=== PATIENT | female | born 1940 | race Caucasian/White ===

== ENCOUNTER 2017-08-22 08:25 | Outpatient (CLI) | payer MEDICARE | END 2017-08-22 08:26 | disposition home or self-care (01) | LOC: BICMAMMO 08:25 | PROVIDERS: ATTEND Family Medicine | DX: Z12.31 Encounter for screening mammogram for malignant neoplasm of breast (principal) | CPT/HCPCS: 77063; 77067 ==

== ENCOUNTER 2018-04-16 08:43 | Outpatient (CLI) | payer MEDICARE ==
--- NOTE | 2018-04-16 10:47 | RAD ---
SINGLE VIEW OF THE CHEST: Comparison: 02-28-17 History: Dyspnea. FINDINGS: Single view of the chest shows a cardiomediastinal silhouette that is upper limits of normal in size. There is a 4.1 cm mass like opacity projecting over the right lung which was not seen on the prior r adiograph. There appears to be a moderate hiatal hernia. No pleural effusion is seen. IMPRESSION: Mass like opacity projecting over the right thorax. CT of the chest with contrast is recommended for further evaluation. POS: [facility]
== END 2018-04-16 08:44 | disposition home or self-care (01) ==
LOC: RAD 08:43
PROVIDERS: ATTEND Internal Medicine Critical Care Medicine
DX: R06.00 Dyspnea, unspecified (principal); R91.8 Other nonspecific abnormal finding of lung field
CPT/HCPCS: 71046

== ENCOUNTER 2018-04-30 14:00 | Outpatient (CLI) | payer MEDICARE ==
--- NOTE | 2018-05-01 14:56 | PFT ---
PATIENT HISTORY: HEIGHT: 63.5 IN WEIGHT: 207 SMOKER: NO HOW LON YRS PACKS PER DAY: 2 PRODUCTIVE COUGH: LUNG DISEASE: PHYSICIAN INTERPRETATION FINAL REPORT: Physician report: Study is compared to PFT from 2007. FEV1 is 1.30 liters which is 66% predicted , FVC is 1.97 liters, which 75% predicted. There is no significant improvement in flows after bronchodilatation. The FEV1/FVC ratio was 66 compared to 2007. The FEV1 and FVC are decreased. The residual volume and total lung capacity are normal. DLCO is 13.67 which is 65% predicted and is lower than the study done in 2007. Maximum ventilatory volume is 48.5 which is appropriate for the FEV1. IMPRESSION: A mild obstructive pulmonary impairment is present. There is no indication of air trapping or hyperinflation. The reduction in gas exchange is correctable for volume. Corporate Communications Specialist: Salt Miner: ALEXANDR CH
== END 2018-04-30 14:01 | disposition home or self-care (01) ==
LOC: CP 14:00
PROVIDERS: ATTEND Internal Medicine Critical Care Medicine
DX: J44.9 Chronic obstructive pulmonary disease, unspecified (principal); J98.4 Other disorders of lung
CPT/HCPCS: 94060; 94727; 94729

== ENCOUNTER 2018-05-01 09:00 | Outpatient (CLI) | payer MEDICARE ==
--- NOTE | 2018-05-01 13:53 | PET ---
PET WITH CT SKULL TO MID THIGH: COMPARISON: 04/18/[address] CLINICAL INDICATION: Malignant neoplasm of unspecified lung: right lung mass, right upper lobe. RADIOPHARMACEUTICAL: 12.0 mCi [id number]. FINDINGS: The previously documented right upper lobe mass on CT exam dated 04/18/18 is confirmed as hypermetabo lic, with SUV measuring up to 22. Within the central aspect of the mass, there is relative decreased metabolic activity, which likely relates to a component of internal necrosis. Mass measures approxima tely 5.0 cm in diameter. There is no evidence of hypermetabolic adenopathy. No hypermetabolic mass is seen within the abdomen and pelvis. Evaluation of osseous structures reveals no hypermetabolic lesions. There is evidence of pulmonary fibrosis/emphysema. Scattered vascular disease is present. There is a mild to moderate sized hiatal hernia. Noninflamed fat-containing ventral lower abdominal wall hernia is present to the right of midline. There are colonic diverticula. IMPRESSION: 1. Hypermetabolic mass of the right upper lobe is consistent with malignancy. 2. There is no scintigraphic evidence of metastatic disease. POS: [facility]
== END 2018-05-01 09:01 | disposition home or self-care (01) ==
LOC: PET 09:00
PROVIDERS: ATTEND Internal Medicine Critical Care Medicine
DX: C34.90 Malignant neoplasm of unspecified part of unspecified bronchus or lung (principal); R91.8 Other nonspecific abnormal finding of lung field
CPT/HCPCS: 78815; A9552

== ENCOUNTER 2018-05-05 12:30 | Inpatient (IN) | payer MEDICARE ==
[2018-05-06] MEDS ORDERED: CEFAZOLIN/Water 2 GM/20 ML SYRINGE ONE (09:03)
[2018-05-06] MEDS ORDERED: Midazolam HCl 2 mg/2 ml Vial ONE (10:27)
[2018-05-06] MEDS ORDERED: Fentanyl 100 MCG/2 ML VIAL ONE (10:27)
[2018-05-06] MEDS ORDERED: HYDROcodone/Acetaminophen 5/325 mg Tablet PO PRN ×4 (11:30→15:31)
[2018-05-06] MEDS ORDERED: Hydrocerin (Eucerin) Cream 120 gm Jar TOP PRN (11:30)
[2018-05-06] MEDS ORDERED: diphenhydrAMINE 50 MG/ML VIAL IM PRN (11:30)
[2018-05-06] MEDS ORDERED: traMADol HCl 50 MG TAB PO PRN ×2 (11:30)
[2018-05-06] MEDS ORDERED: Naloxone HCl 0.4 mg/ml Vial IVP PRN (11:30)
[2018-05-06] MEDS ORDERED: diphenhydrAMINE 25 MG CAP PO PRN (11:30)
[2018-05-06] MEDS ORDERED: Ondansetron HCl/PF 4 MG/2 ML Vial IVP PRN ×2 (11:30→15:31)
[2018-05-06] MEDS ORDERED: diphenhydrAMINE 50 MG/ML VIAL IVP PRN (11:30)
[2018-05-06] MEDS ORDERED: Naloxone HCl 0.4 mg/ml Vial IV PRN (11:30)
[2018-05-06] MEDS ORDERED: Zolpidem Tartrate 5 MG TAB PO PRN (11:30)
[2018-05-06] MEDS ORDERED: Bupivacaine 0.25% 10 ML VIAL EPIDURAL PRN (11:30)
[2018-05-06] MEDS ORDERED: Promethazine HCl 25 MG SUPP PR PRN (11:30)
[2018-05-06] MEDS ORDERED: Promethazine HCl 25 MG/ML VIAL IM PRN ×2 (11:30→15:31)
[2018-05-06] MEDS ORDERED: Fentanyl 250 MCG/5 ML VIAL ONE (11:38)
[2018-05-06] MEDS ORDERED: Ropivacaine 0.5% HCl/PF (150 MG/30 ML VIAL) ONE (11:39)
[2018-05-06] MEDS ORDERED: Phenylephrine HCL 10 MG/ML VIAL ONE (11:39)
[2018-05-06] MEDS ORDERED: Glycopyrrolate 0.2 MG/ML 5 ML SYRINGE ONE (14:37)
[2018-05-06] MEDS ORDERED: Dexamethasone 20 MG/5 ML VIAL ONE (14:37)
[2018-05-06] MEDS ORDERED: ePHEDrine/0.9% NaCl/PF SYRINGE 50 mg/10 ml ONE (14:37)
[2018-05-06] MEDS ORDERED: PROPOFOL 200 MG/20 ML VIAL ONE (14:37)
[2018-05-06] MEDS ORDERED: Ondansetron HCl/PF 4 MG/2 ML Vial ONE (14:37)
[2018-05-06] MEDS ORDERED: Phenylephrine 10 MG/NS 250 ML 250 ML IVPB PRN (15:31)
[2018-05-06] MEDS ORDERED: hydrALAZINE 20 MG/ML VIAL SLOW IVP PRN (15:31)
[2018-05-06] MEDS ORDERED: Acetaminophen 1,000 MG in Premix Bag 1 BAG IVPB PRN (15:58)
--- NOTE | 2018-05-06 16:12 | RAD ---
CHEST ONE VIEW: History: Status post thoracotomy. Comparison: None. FINDINGS: Right sided chest tube. There does appear to be a right sided pneumothorax, likely moderate in size. Evaluation is limited due to chest tube. There is subcutaneous air in the right hemithorax. Second ch est tube is noted projecting over the right lung base. IMPRESSION: 1. Two right sided chest tubes. 2. Moderate right sided pneumothorax. POS: [facility]
--- NOTE | 2018-05-06 16:19 | OP ---
DATE OF PROCEDURE: 05/06/2018 PREOPERATIVE DIAGNOSIS: Right upper lobe approximately 5 cm mass that had appeared in the last year on chest x-ray. 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 PROCEDURES: Right thoracotomy with right upper and middle lobectomies and mediastinal lymph node dis section. SURGEON: Tyson Andino M.D. ANESTHESIA: General endotracheal -- Dr. Henok Moya and Pedro Silva CRNA. ESTIMATED BLOOD LOSS: 300. IV FLUIDS: 600. DRAINS: 32-Setswana chest tubes x2. SPECIMENS 1. Right upper and middle lobe. 2. Parietal pleural specimen - frozen section negative for malignancy. 3. Levels 7, 8R, 9R, 10R lymph nodes for routine path. PROCEDURE IN DETAIL: After consent was obtained, the patient was taken to the operating room and sherice sally in supine position on the operating room table. Appropriate anesthetic monitor was placed and ge neral anesthesia induced. The patient was placed in the left lateral decubitus position. The double lumen tube was confirmed in position with fiberoptic bronchoscopy. The right chest wall was prepped and draped in usual sterile fashion. Posterolateral thoracotomy incision was made and dissection do wn through the latissimus was obtained with electrocautery. Chest was entered and approximately the 6th interspace. On entering the chest, the tumor was easily palpable and fixed to the chest wall. I ncision was enlarged and are pericostal incision enlarged. Ribs were spread. A subpleural plane was created and it did not appear that the tumor went through the pleura. A specimen of the pleura unde rneath the tumor was sent and was negative for malignancy. The tumor was completely freed from the p leura. The area where the tumor was stuck was marked with clips. The hilum was mobilized. A level 7 and 8 lymph nodes were taken. A level 9 lymph node was taken on freeing the inferior pulmonary ligament. The venous drainage to both the upper and middle lobes came from a single venous complex. There was no true plane between the upper and middle lobe, therefore, the middle lobe was taken with the specimen. Dissection was begun in the fissure. The lower lobe w as exposed. A level 10 lymph node was taken to the fissure. The fissure was completed both anterior ly and posteriorly with a single fire of a EVERETT stapler. The pulmonary venous drainage was then circu mferentially controlled and divided with vascular stapler. Pulmonary arteries to the upper and middl e lobe were divided between stapler. Middle lobe bronchus was divided with the EVERETT stapler. The upp er lobe bronchus was clamped with a EVERETT stapler and the lower lobe was inflated and filled nicely. S tapler was fired and the specimen was removed. Frozen section on the bronchial margins returned as n egative. Frozen section on the mass returned as a nonsmall cell cancer with spindle features. 32-Setswana chest tubes were placed in the chest. Chest was copiously irrigated with water. Bronchial stumps were tested under 40 cm of pressure and were air tight. After hemostasis had been obtained, the lower lobe was expanded and expanded nicely. Ribs were reapproximated with #1 Vicryl. Wounds we re irrigated, closed in multiple layers, and Dermabond applied to the skin. The patient tolerated th e procedure well, was awakened, extubated, and transferred to the recovery room in stable condition. Needle, sponge, and instrument counts were reported correct x2.
[2018-05-06] MEDS: Ketorolac Tromethamine 30 MG/ML VIAL IVP SCH ×3 (17:28→23:00)
[2018-05-06 17:47] VITALS: BMI 30.1
[2018-05-06] MEDS: CEFAZOLIN/Water 2 GM/20 ML SYRINGE SLOW IVP SCH (18:03)
[2018-05-07] MEDS: CEFAZOLIN/Water 2 GM/20 ML SYRINGE SLOW IVP SCH ×2 (00:45→08:59)
[2018-05-07 04:59] LABS: #Lymphocytes 0.5 thou/uL (1.20-3.40); #Monocytes 0.4 thou/uL (0.11-0.59); #Neutrophils 7.4 thou/uL (1.40-6.50); %Eosinophils 0.2 % (0.0-10.0); %Lymphocytes 5.6 % (21.0-51.0); %Monocytes 4.4 % (0.0-10.0); %Neutrophils 89.9 % (42.0-75.0); Hemoglobin 13.1 g/dL (12.0-16.0); Mean Corpuscular HGB CONC 33.2 g/dL (32.0-36.0); Mean Corpuscular Hemoglobin 35.5 pg (27.0-31.0); Mean Platelet Volume 8.5 fL (7.4-10.4); Platelet Count 254 thou/uL (130-400); RBC Distribution Width 11.4 % (11.5-14.5); Red Blood Cell (RBC) Count 3.69 mill/uL (4.20-5.40); White Blood Cell (WBC) Count 8.2 thou/uL (4.8-10.8)
[2018-05-07] MEDS: Ketorolac Tromethamine 30 MG/ML VIAL IVP SCH ×3 (05:00→18:31)
[2018-05-07 05:19] LABS: Anion Gap 17 mmol/L (10-20); BUN (Urea Nitrogen) 25 mg/dL (9.8-20.1); Calc. Creatinine Clearance 40 mL/min (70-130); Calcium 8.9 mg/dL (7.8-10.44); Carbon Dioxide 23 mmol/L (23-31); Chloride 104 mmol/L (98-107); Estimated GFR-MDRD 36; Glucose 190 mg/dL (83-110); Potassium 4.5 mmol/L (3.5-5.1); Sodium 139 mmol/L (136-145)
[2018-05-07] MEDS: Levothyroxine Sodium 125 MCG TAB PO SCH (05:26)
--- NOTE | 2018-05-07 08:39 | RAD ---
AP VIEW CHEST: HISTORY: Status post thoracotomy. FINDINGS: AP view chest is obtained on 05/07/18. Comparison is made to previous exam from 05/06/18. AP view chest demonstrates a right upper chest superior mediastinal drain in place. This is seen adj acent to the aortic arch. Two right-sided chest tubes in place. No evidence of obvious pneumothorax is seen. Subcutaneous emphysema previously noted is less pronoun sally. Areas of patchy density seen in the left lung base compatible with atelectasis or possible pneumonia in the left lung base. IMPRESSION: Two right-sided chest tubes and possible superior mediastinal drain in place. POS: [facility]
[2018-05-07] MEDS ORDERED: Non-Formulary Item 1 EACH (Cholecalciferol (Vitamin D3) [Vitamin D3] 1,000 UNIT) PO SCH (09:00)
[2018-05-07] MEDS ORDERED: Prevnar 13-Val Conj/PF 0.5 ML SYRINGE IM ONE (09:00)
--- NOTE | 2018-05-07 13:47 | CON ---
DATE OF CONSULTATION: 05/07/2018 Ms. Lemos is a 77-year-old female who had the incidental finding on a yearly chest x-ray this year of a lung mass that was PET positive, it was abutting the chest wall. I referred her to Dr. Sina fernández o was gracious enough to put her on the schedule the following day. I was asked to see her in the Critical Care Unit after surgery. She has an epidural in place. Her c hest tubes in place. She does not have an air leak. PHYSICAL EXAMINATION: VITAL SIGNS: She is afebrile, blood pressure 106/46, heart rate in the 70s, respiratory rates in the low 20s. LUNGS: She has equal breath sounds. HEART: Regular rhythm. S1 and S2 are normal. ABDOMEN: Soft. EXTREMITIES: No clubbing, cyanosis, or edema. LABORATORY: White count 8.2, hemoglobin 13.1, platelets 254. Electrolytes are normal. BUN 25, crea tinine 1.4, glucose 190. IMPRESSION: Status post lobectomy for a rapidly appearing mass that is likely malignant. PLAN: We will await pathology. She appears to be clinically doing well in the Critical Care Unit.
[2018-05-07] MEDS: fentaNYL Citrate/PF 1,250 MCG, Bupivacaine 25 ML in Sodium Chloride 0.9% 250 ML 200 ML EPIDURAL SCH (15:37)
[2018-05-08] MEDS: Ketorolac Tromethamine 30 MG/ML VIAL IVP SCH ×2 (00:32→05:42)
[2018-05-08] MEDS: Levothyroxine Sodium 125 MCG TAB PO SCH (05:42)
[2018-05-08] MEDS ORDERED: Mineral Oil ENEMA PR PRN (07:38)
[2018-05-08] MEDS ORDERED: Furosemide 20 MG/2 ML VIAL SLOW IVP SCH (07:38)
[2018-05-08] MEDS ORDERED: Acetaminophen 650 MG Suppository PR PRN (07:38)
[2018-05-08] MEDS ORDERED: Milk Of Magnesia 30 ML UDCUP PO PRN (07:38)
[2018-05-08] MEDS ORDERED: Acetaminophen 325 MG TAB PO PRN (07:38)
[2018-05-08] MEDS ORDERED: Bisacodyl 10 MG SUPP PR PRN (07:38)
--- NOTE | 2018-05-08 08:38 | RAD ---
PORTABLE CHEST: COMPARISON: Prior day's study. HISTORY: Post thoracotomy. FINDINGS: The right-sided chest tubes remain essentially unchanged in position. Parenchymal lung changes are s table. Heart size appears enlarged. IMPRESSION: Stable exam. POS: [facility]
--- NOTE | 2018-05-08 10:55 | PRG ---
DATE OF SERVICE: 05/08/2018 Ms. Lemos did well overnight. She had an air leak this morning, but the dressing has been replaced over the chest tube sites and the air leak appears to have resolved. PHYSICAL EXAMINATION: VITAL SIGNS: Heart rate is 90. Blood pressure 120/54, respiratory rate is 22. LUNGS: Lungs are clear. There is a rub on the right. CARDIOVASCULAR: Regular rhythm. ABDOMEN: Soft. There is no pneumothorax on chest radiograph. There is no lab today. I will order for some lab for tomorrow since her creatinine was mildly elevat ed at 1.4 yesterday. PLAN: Continue with current care.
[2018-05-08] MEDS: fentaNYL Citrate/PF 1,250 MCG, Bupivacaine 25 ML in Sodium Chloride 0.9% 250 ML 200 ML EPIDURAL SCH (17:00)
[2018-05-09] MEDS: Levothyroxine Sodium 125 MCG TAB PO SCH (06:01)
[2018-05-09 06:35] LABS: Hemoglobin 10.6 g/dL (12.0-16.0); Mean Corpuscular HGB CONC 32.8 g/dL (32.0-36.0); Mean Corpuscular Hemoglobin 34.9 pg (27.0-31.0); Mean Platelet Volume 7.9 fL (7.4-10.4); Platelet Count 209 thou/uL (130-400); RBC Distribution Width 11.5 % (11.5-14.5); Red Blood Cell (RBC) Count 3.04 mill/uL (4.20-5.40); White Blood Cell (WBC) Count 6.8 thou/uL (4.8-10.8)
[2018-05-09 06:50] LABS: Eosinophils 1 % (0-10); Lymphocytes 17 % (21-51); MDiff Complete? YES; Monocytes 7 % (0-10); Neutrophil 75 % (42-75)
[2018-05-09 06:56] LABS: Anion Gap 11 mmol/L (10-20); BUN (Urea Nitrogen) 17 mg/dL (9.8-20.1); Calc. Creatinine Clearance 76 mL/min (70-130); Calcium 8.9 mg/dL (7.8-10.44); Carbon Dioxide 29 mmol/L (23-31); Chloride 102 mmol/L (98-107); Estimated GFR-MDRD 71; Glucose 129 mg/dL (83-110); Potassium 4.1 mmol/L (3.5-5.1); Sodium 138 mmol/L (136-145)
[2018-05-09] MEDS ORDERED: Furosemide 20 MG TAB PO SCH (07:45)
[2018-05-09] MEDS: Furosemide 20 MG TAB PO SCH (08:03)
[2018-05-09] MEDS: Aspirin 81 mg Enteric Coated Tablet PO SCH (08:03)
--- NOTE | 2018-05-09 13:55 | RAD ---
SINGLE OF CHEST: Date: 05/09/18 COMPARISON: 05/08/18. HISTORY: Status post thoracotomy. FINDINGS: Single view of the chest shows a normal sized cardiomediastinal silhouette with atherosclerotic calci fications in the aorta. Postsurgical changes are seen in the right thorax. Right-sided chest tubes ar e seen. No pneumothorax is present. Increased interstitial markings are seen. IMPRESSION: Stable exam. POS: [facility]
--- NOTE | 2018-05-09 18:41 | PRG ---
DATE OF SERVICE: 05/09/2018 SUBJECTIVE: Ms. Lemos had no complaints. She is ready for the chest tube to come out. She has no air leak today, still has her epidural in. OBJECTIVE: VITAL SIGNS: She is afebrile, heart rate 70, respiratory rate 16, oximetry is 95 on 2 liters, blood pressure 106/64. LUNGS: She has equal breath sounds on exam. HEART: Regular rhythm. Chest radiograph shows no pneumothorax. Pathology revealed poorly differentiated malignancy, most compatible with sarcoma. The specimen has been sent out. Margins were negative, but unfortunately 2 lymph nodes were positive for metastatic m alignancy. IMPRESSION: Pulmonary sarcoma with positive lymph nodes. PLAN: Continue with postoperative management, water seal when Cardiothoracic Surgery feels this is a ppropriate and then Oncology consultation at a later date.
[2018-05-09] MEDS: fentaNYL Citrate/PF 1,250 MCG, Bupivacaine 25 ML in Sodium Chloride 0.9% 250 ML 200 ML EPIDURAL SCH (19:53)
--- NOTE | 2018-05-09 23:12 | DIS ---
DATE OF ADMISSION: 05/06/2018 DATE OF DISCHARGE: 05/10/2018 DIAGNOSIS: Right upper lobe mass - pathology has returned as 5.8 cm poorly differentiated malignancy , most compatible with high-grade sarcoma. Margins are negative. There are two lymph nodes - a inne r lobar lymph node and a subcarinal level 7 lymph node that are positive. PROCEDURE: Right thoracotomy with right upper and middle lobectomy and mediastinal lymph node dissec tion. DISCHARGE MEDICATIONS: Unchanged with the exception of the addition of [place] 5/325 one to two q.6 ho urs p.r.n. pain. DESCRIPTION OF HOSPITAL STAY: Ms. Lemos was brought in for elective right thoracotomy. She underw ent upper and middle lobectomy with mediastinal lymph node dissection. Pathology is as above. She has done well postoperatively. Her chest tubes were discontinued on the . She is being disc harged to home on the in good condition. She will follow up with me and Dr. Spencer. Pathology h as been referred out to the [facility] for further delineation. She will also need follow up with ncology Clinic.
[2018-05-10] MEDS: Levothyroxine Sodium 125 MCG TAB PO SCH (06:16)
[2018-05-10] MEDS: Aspirin 81 mg Enteric Coated Tablet PO SCH (09:13)
[2018-05-10] MEDS: Furosemide 20 MG TAB PO SCH (09:13)
[2018-05-10 12:01] VITALS: TEMP 98.1
[2018-05-10 12:06] VITALS: BP 121/69
--- NOTE | 2018-05-10 21:11 | PRG ---
DATE OF SERVICE: 05/10/2018 . She is doing well. She has equal breath sounds. She is in no distress. She is tentatively scheduled for discharge. We will await final pathology second opinion before we refer to Oncology. She is stable for discharge in my opinion.
== END 2018-05-10 15:36 | disposition home or self-care (01) | DRG 164 ==
LOC: SURG A 05-06 08:13 → CCU 05-06 15:18 → 2SE 05-08 16:52 → 2NO 05-09 16:44
PROVIDERS: ADMIT Thoracic Surgery (Cardiothoracic Vascular Surgery); ATTEND Thoracic Surgery (Cardiothoracic Vascular Surgery)
PROC: 0BBD0ZZ Excision of Right Middle Lung Lobe, Open Approach (ICD-10-PCS; principal; 2018-05-06)
PROC: 0BBC0ZZ Excision of Right Upper Lung Lobe, Open Approach (ICD-10-PCS; 2018-05-06)
PROC: 07B70ZX Excision of Thorax Lymphatic, Open Approach, Diagnostic (ICD-10-PCS; 2018-05-06)
PROC: 3E0R3BZ Introduction of Anesthetic Agent into Spinal Canal, Percutaneous Approach (ICD-10-PCS; 2018-05-06)
DX: C34.11 Malignant neoplasm of upper lobe, right bronchus or lung (principal); C77.8 Secondary and unspecified malignant neoplasm of lymph nodes of multiple regions; I10 Essential (primary) hypertension; Z87.891 Personal history of nicotine dependence; K21.9 Gastro-esophageal reflux disease without esophagitis; M81.8 Other osteoporosis without current pathological fracture; E89.0 Postprocedural hypothyroidism; J44.9 Chronic obstructive pulmonary disease, unspecified
CPT/HCPCS: 36415; 71045; 80048; 85007; 85025; 85027; 86850; 86870; 86900; 86901; 86922; 88305; 88309; 88331; 88332; 88341; 88342; 93005; 93010; 94640; A4216; G8978-GP-CJ; G8979-GP-CI; J0131; J0360; J1100; J1200; J1642; J1885; J1940; J2250; J2370; J2405; J2550; J2704; J2795; J3010; J3490; J7050; J7620; P9045

== ENCOUNTER 2018-05-05 14:09 | Outpatient (CLI) | payer MEDICARE ==
--- NOTE | 2018-05-05 16:55 | EKG ---
Test Reason : Blood Pressure : / mmHG Vent. Rate : 066 BPM Atrial Rate : 066 BPM P-R Int : 156 ms QRS Dur : 106 ms QT Int : 450 ms P-R-T Axes : 062 026 010 degrees QTc Int : 471 ms Poor data quality, interpretation may be adversely affected Normal sinus rhythm Incomplete right bundle branch block T wave abnormality, consider anterior ischemia Prolonged QT Abnormal ECG When compared with ECG of 20-JAN-2002 10:14, [id number]-[id number]-[id number] is no longer Present Confirmed by ALESSIO SETH, SRamesh ([id number]) on 05/05/2018 4:55:11 PM Referred By: LOPEZ Confirmed By:DR. Rufino MCCALLUM MD
[2018-05-05 17:23] LABS: Hemoglobin 13.4 g/dL (12.0-16.0); Mean Corpuscular HGB CONC 32.9 g/dL (32.0-36.0); Mean Corpuscular Hemoglobin 34.8 pg (27.0-31.0); Mean Platelet Volume 8.9 fL (7.4-10.4); Platelet Count 254 thou/uL (130-400); RBC Distribution Width 11.4 % (11.5-14.5); Red Blood Cell (RBC) Count 3.85 mill/uL (4.20-5.40)
[2018-05-05 17:37] LABS: Anion Gap 12 mmol/L (10-20); BUN (Urea Nitrogen) 21 mg/dL (9.8-20.1); Calc. Creatinine Clearance 0 mL/min (70-130); Calcium 9.5 mg/dL (7.8-10.44); Carbon Dioxide 31 mmol/L (23-31); Chloride 100 mmol/L (98-107); Estimated GFR-MDRD 41; Glucose 135 mg/dL (83-110); Potassium 3.8 mmol/L (3.5-5.1); Sodium 139 mmol/L (136-145)
== END 2018-05-05 14:10 | disposition home or self-care (01) ==
LOC: LABBT 14:09
PROVIDERS: ATTEND Thoracic Surgery (Cardiothoracic Vascular Surgery)
DX: Z01.818 Encounter for other preprocedural examination (principal); R91.8 Other nonspecific abnormal finding of lung field
CPT/HCPCS: 80048; 85027; 86850; 86870; 86900; 86901; 86922; 93005; 93010

== ENCOUNTER 2018-05-26 13:12 | Outpatient (CLI) | payer MEDICARE ==
--- NOTE | 2018-05-26 14:45 | RAD ---
2 VIEWS CHEST: Date: 05/26/18 COMPARISON: 04/16/18, 05/09/18. HISTORY: Status post thoracotomy. FINDINGS: Atherosclerosis and elongation of aorta is redemonstrated. There is persistent fullness in the left a nd right perihilar region. Persistent operative change in the right hemithorax. There is no pneumothorax. There is vertebra plan a with severe loss of vertebral body height at T12. Correlate for possible pathologic fracture. Note, reference made to a PET scan from 05/01/18 does not report any FDG avidity. There is also a compress ion deformity with loss of superior end plate at the L2 level. IMPRESSION: 1. Stable postoperative chest radiograph. 2. Osseous changes as described above. POS: [facility]
== END 2018-05-26 13:13 | disposition home or self-care (01) ==
LOC: RAD 13:12
PROVIDERS: ATTEND Thoracic Surgery (Cardiothoracic Vascular Surgery)
DX: R91.8 Other nonspecific abnormal finding of lung field (principal); Z98.890 Other specified postprocedural states
CPT/HCPCS: 71046

== ENCOUNTER 2018-08-25 10:13 | Outpatient (CLI) | payer MEDICARE | END 2018-08-25 10:14 | disposition home or self-care (01) | LOC: BICMAMMO 10:13 | PROVIDERS: ATTEND Family Medicine | DX: Z12.31 Encounter for screening mammogram for malignant neoplasm of breast (principal); R92.1 Mammographic calcification found on diagnostic imaging of breast; Z80.3 Family history of malignant neoplasm of breast | CPT/HCPCS: 77063; 77067 ==

== ENCOUNTER 2018-09-08 13:48 | Outpatient (CLI) | payer MEDICARE ==
--- NOTE | 2018-09-08 15:06 | RAD ---
CHEST TWO VIEWS: History: Lung mass. Comparison: 05-26-18 FINDINGS: Heart size is within normal limits. Chronic lung changes are seen. Post-operative changes of the righ t lung with prominence to the right hilum are all stable findings. Elevation of the right hemidiaphra gm again noted. IMPRESSION: Stable exam. POS: [facility]
== END 2018-09-08 13:49 | disposition home or self-care (01) ==
LOC: RAD 13:48
PROVIDERS: ATTEND Thoracic Surgery (Cardiothoracic Vascular Surgery)
DX: R91.8 Other nonspecific abnormal finding of lung field (principal)
CPT/HCPCS: 71046

== ENCOUNTER 2018-09-09 08:53 | Outpatient (CLI) | payer MEDICARE ==
--- NOTE | 2018-09-09 10:54 | CT ---
CT OF CHEST AND ABDOMEN PERFORMED WITH INTRAVENOUS CONTRAST ENHANCEMENT: History: Lung cancer follow up. Comparison: 05-01-18 PET scan, CT chest 04-18-18 FINDINGS: Severe COPD changes are again demonstrated. Since that prior examination, there are right upper lobe lobectomy change with associated volume loss and elevation to the right hemidiaphragm. There is a 1.6 x 2.4 cm pleural based mass in the location of the previous mass lesion. This could represent residu al or recurrent tumor in this area. There is a surgical clip associated with this. There is no signif icant mediastinal or hilar lymphadenopathy. CT OF ABDOMEN PERFORMED WITH INTRAVENOUS CONTRAST ENHANCEMENT: There is a hiatal hernia noted. The liver, spleen, pancreas, and gallbladder regions all appear unremarkable. Right and left adrenal glands and right and left kidneys are normal in size. There is no significant periaortic or mesenteric adenopathy. Review of osseous structures show arthritic changes of the spine. There are some compression changes of some of the lumbar vertebral bodies, probably on the basis of osteoporosis. I do not appreciate an y lytic or blastic bony process. IMPRESSION: 1. Post-operative changes of the right upper lobe. In the region of the previously described pleural based mass there is now a small pleural based lesion measuring approximately 1.5 x 2.4 cm in size. Th is could either represent residual tumor or recurrent tumor or possibly scar. I suggest consideration for PET scan for assessment. 2. COPD changes. 3. No evidence for distant metastatic disease. 4. Hiatal hernia. POS: [facility]
[2018-09-09] MEDS ORDERED: ISOVUE-370 76%-LOCM 1 ML ONE (13:17)
== END 2018-09-09 08:54 | disposition home or self-care (01) ==
LOC: BICCT 08:53
PROVIDERS: ATTEND Internal Medicine Hematology & Oncology
DX: C34.90 Malignant neoplasm of unspecified part of unspecified bronchus or lung (principal); R91.1 Solitary pulmonary nodule; K44.9 Diaphragmatic hernia without obstruction or gangrene; Z98.890 Other specified postprocedural states
CPT/HCPCS: 71260; 74160; 82565; Q9966

== ENCOUNTER 2018-11-05 08:20 | Outpatient (CLI) | payer MEDICARE ==
--- NOTE | 2018-11-05 09:06 | CT ---
FContrast-enhanced CT chest. HISTORY: Patient with lung cancer. Contrast-enhanced CT images of the chest is performed. Comparison made to previous exam from 9. The patient has had a previous right upper lobectomy. No evidence of mediastinal lymphadenopathy seen. Calcifications seen in the aorta, aortic valve and coronary arteries. Lung parenchymal interstitial fibrotic changes seen. There is an enlarging right upper anterior chest wall mass. The mass is increased in size. Previously measured 2.8 x 1.9 cm. Now it is increased in size measuring 3.9 x 3.1 cm. There are central areas o f necrosis. The mass extends laterally into the right anterolateral chest wall musculature. There is an old compression fracture seen at the L1 level. Hiatal hernia is present. IMPRESSION: Enlarging right anterolateral chest wall mass.
== END 2018-11-05 08:21 | disposition home or self-care (01) ==
LOC: BICCT 08:20
PROVIDERS: ATTEND Internal Medicine Hematology & Oncology
DX: C34.11 Malignant neoplasm of upper lobe, right bronchus or lung (principal); R22.2 Localized swelling, mass and lump, trunk
CPT/HCPCS: 71260; 82565

== ENCOUNTER 2018-11-07 10:15 | Outpatient (CLI) | payer MEDICARE ==
--- NOTE | 2018-11-07 13:33 | PET ---
FRadionucleotide PET scan with CT attenuation correction HISTORY: Right upper lobe cancer. Enlarging mass. Restaging. COMPARISON: 05/01/2018. CT chest 11/05/2018. FINDINGS: Physiologic uptake of radiotracer throughout the enteric system and along each urinary trac t. The recurrent, recently enlarging right anterior chest wall and upper lobe lung mass shows a maximum SUV of 19.3 (previously 27.9). It was better evaluated and described for CT imaging characteristics o n recent CT chest exam. No new areas of hypermetabolic activity are apparent. Nondiagnostic CT attenuation correction images again show prominent calcification throughout the manuel rial structures, a small hiatal hernia, and prominent degenerative changes of the lumbar spine. IMPRESSION: Residual/recurrent right upper lobe and right anterior chest wall hypermetabolic mass, as detailed above. No evidence of distant metastasis.
== END 2018-11-07 10:16 | disposition home or self-care (01) ==
LOC: PET 10:15
PROVIDERS: ATTEND Internal Medicine Hematology & Oncology
DX: C34.11 Malignant neoplasm of upper lobe, right bronchus or lung (principal); R91.8 Other nonspecific abnormal finding of lung field
CPT/HCPCS: 78815; A9552

== ENCOUNTER 2019-02-17 11:20 | Outpatient (CLI) | payer MEDICARE ==
--- NOTE | 2019-02-17 13:56 | PET ---
EXAM: PET/CT HISTORY: Malignant neoplasm of the right upper lobe TECHNIQUE: PET scanning with CT attenuation correction was performed from the base of the brain to the proximal thighs following the intravenous administration of 12.7 millicuries [id number]. COMPARISON: Prior PET/CT dated November 07, 2018 FINDINGS: Biodistribution:The biodistribution for the exam appears acceptable. Head and neck: There is appropriate background activity within the brain. No hypermetabolic lymphaden opathy or masses identified. Thorax: The hypermetabolic chest wall mass is slightly smaller than on the comparison PET/CT now nellie uring 3.6 x 3.3 cm where previously measured 3.9 x 3.4 cm. The maximum SUV uptake is also diminished, previously measuring 19.25, now measuring 11.91. The mean value is also diminished, previ ously measuring 11.08 now measuring 5.92. No additional hypermetabolic pulmonary nodule pleural effusion is evident. Abdomen and pelvis: There is expected background activity within the GI and systems. No hypermetab olic mass, lymphadenopathy or ascites is present. Osseous structures and skin: No hypermetabolic skin or osseous lesion is identified. IMPRESSION: Findings most consistent with response to therapy. The right chest wall metastatic lesion is slightly smaller with decreased hypermetabolic activity.
== END 2019-02-17 11:21 | disposition home or self-care (01) ==
LOC: PET 11:20
PROVIDERS: ATTEND Internal Medicine Hematology & Oncology
DX: C34.11 Malignant neoplasm of upper lobe, right bronchus or lung (principal); C79.51 Secondary malignant neoplasm of bone; R94.8 Abnormal results of function studies of other organs and systems
CPT/HCPCS: 78815; A9552

== ENCOUNTER 2019-04-10 10:36 | Outpatient (CLI) | payer MEDICARE ==
--- NOTE | 2019-04-10 14:03 | MRI ---
Thoracic spine MRI with and without contrast: 04/10/2019 COMPARISON: None HISTORY: Upper to mid back pain radiating around the chest on the right, history of lung cancer TECHNIQUE: Multiplanar multisequence MR imaging of the thoracic spine provided with and without contr ast the sagittal STIR imaging demonstrates no focal area of osseous marrow edema. There is a burst fracture involving the L1 vertebral body with mild retropulsion of osseous fragments into the central canal and prominent anterior vertebral body height loss estimated in the 75%-80% range. This is an old fracture, demonstrating no evidence for acute edema. No significant anterolisth esis or retrolisthesis is noted within the thoracic spine. No significant central canal or neural foraminal stenosis is noted at T1-2, T2-3, T3-4, T4-5, T5-6, o r T6-7. There is mild left neural foraminal stenosis at T7-8 on the basis of facet hypertrophy. No significan t central canal or neural foraminal stenosis noted at T8-9 or T9-10. At T10-11 there is disc space narrowing, disc desiccation, and disc bulge. There is also posterior li gamentous hypertrophy. This leads to a moderate degree of central canal stenosis. There is fluid within bilateral facet joints with moderate/severe bilateral neural foraminal stenosis at T10-11. Flu id within the facet joints could be seen on the basis of instability, which could be best assessed with flexion and extension radiographs. At T11-12 there is no significant central canal or neural foraminal stenosis. At T12-L1 there is disc space narrowing with disc desiccation and disc bulge. This effaces the ventra l thecal sac with mild central canal stenosis. No significant neural foraminal stenosis noted at the T12-L1 level. Retropulsion at L1 causes a mild degree of central canal stenosis. The postcontrast imaging demonstrates no abnormal enhancement involving the contents of the thecal sa c, the imaged osseous structures or the intervertebral discs. No focal area of abnormal signal intensity is identified within the thoracic cord. There is abnormal signal in the region of the right hemithorax superiorly, not well characterized on this examination. Please refer to PET/CT performed 02/17/2019 for full assessment. IMPRESSION: Degenerative change at T10-11 as detailed above. This includes central canal and bilatera l neural foraminal stenosis as well is fluid signal intensity within the facet joints as detailed above. Remote fracture at L1. No evidence for osseous metastatic disease within the thoracic spine.
== END 2019-04-10 10:37 | disposition home or self-care (01) ==
LOC: SCSMRI 10:36
PROVIDERS: ATTEND Internal Medicine Hematology & Oncology
DX: M54.6 Pain in thoracic spine (principal); C34.11 Malignant neoplasm of upper lobe, right bronchus or lung; M48.04 Spinal stenosis, thoracic region; M47.814 Spondylosis without myelopathy or radiculopathy, thoracic region; R93.7 Abnormal findings on diagnostic imaging of other parts of musculoskeletal system
CPT/HCPCS: 72157

== ENCOUNTER 2019-04-16 08:12 | Outpatient (CLI) | payer MEDICARE ==
--- NOTE | 2019-04-16 12:46 | NM ---
WHOLE BODY BONE SCAN: HISTORY: Back pain and rib pain RADIOPHARMACEUTICAL: 31.5 mCi technetium-99m MDP injected intravenously. COMPARISON: None FINDINGS: There is diffuse increased uptake in the spine consistent with degenerative changes. There is scoliot ic curvature of the spine. Increased uptake in the shoulders is secondary to degenerative change. No other abnormal areas of tracer localization seen in the skeleton that are suspicious. Tracer excretion through the kidneys is within normal limits. IMPRESSION: No significant focal abnormality in the spine or ribs.
== END 2019-04-16 08:13 | disposition home or self-care (01) ==
LOC: NM 08:12
PROVIDERS: ATTEND Internal Medicine Critical Care Medicine
DX: R07.81 Pleurodynia (principal); M54.9 Dorsalgia, unspecified
CPT/HCPCS: 78306; A9503

== ENCOUNTER 2019-06-14 08:54 | Inpatient (IN) | payer MEDICARE ==
[2019-06-14] MEDS ORDERED: methylPREDNISolone Sod Succ/PF 125 MG/2 ML VIAL ONE (09:15)
--- NOTE | 2019-06-14 09:50 | RAD ---
XR Chest 1 View Portable History: Shortness of breath. Lobectomy. Comparison: PET/CT February 2019. Findings: There a soft tissue density projecting over the right midlung. Scarring both lung bases. Vo lume loss right lung. There is scarring both lung bases. Surgical clips along the right hemithorax. Impression: Soft tissue density projecting of the right midlung at the expected location of the known metastatic focus reflect postsurgical change versus residual mass. Recommend correlation with timing of surgery and surgical findings.
[2019-06-14 10:19] LABS: Hemoglobin 8.8 g/dL (12.0-16.0); Mean Corpuscular HGB CONC 31.7 g/dL (32.0-36.0); Mean Corpuscular Hemoglobin 35.6 pg (27.0-31.0); Mean Platelet Volume 6.9 fL (7.4-10.4); Platelet Count 477 thou/uL (130-400); RBC Distribution Width 16.1 % (11.5-14.5); Red Blood Cell (RBC) Count 2.46 mill/uL (4.20-5.40)
[2019-06-14 10:24] LABS: ALT (SGPT) 9 U/L (8-55); AST (SGOT) 18 U/L (5-34); Albumin 3.2 g/dL (3.4-4.8); Alkaline Phosphatase 125 U/L (40-110); Anion Gap 17 mmol/L (10-20); BUN (Urea Nitrogen) 13 mg/dL (9.8-20.1); Bilirubin, Total 0.5 mg/dL (0.2-1.2); Calc. Creatinine Clearance 0 mL/min (70-130); Carbon Dioxide 28 mmol/L (23-31); Chloride 97 mmol/L (98-107); Estimated GFR-MDRD 75; Globulin 3.6 g/dL (2.4-3.5); Glucose 127 mg/dL (83-110); Potassium 3.5 mmol/L (3.5-5.1); Protein, Total 6.8 g/dL (6.0-8.3); Sodium 138 mmol/L (136-145)
[2019-06-14 10:35] LABS: Band 1 % (5-11); Lymphocytes 2 % (21-51); MDiff Complete? YES; Monocytes 5 % (0-10); Neutrophil 92 % (42-75); Platelet Morphology Comment Appears Increased
--- NOTE | 2019-06-14 11:21 | CT ---
CTA Angio Chest W WO Con History: Dyspnea Comparison: Chest radiograph same day Findings: CT angiogram chest performed after the intravenous administration of contrast. 3-D renderin g provided. Pulmonary arteries are dilated. No proximal segmental pulmonary arterial filling defect. Soft tissue mass peripheral aspect right upper lobe abutting the pleural surface appears to extend in to the right intercostal muscles measuring approximately 4 x 5 x 4.5 cm. No associated fracture of the adjacent right fourth rib. This is increased in size from comparison examination. High-grade paraseptal emphysema. Fibrosis and lower lobes. The aorta is tortuous. Although incompletely evaluated on this chest examination there is a high concern for a peritoneal ma ss in the left colon at the splenic flexure measuring at least 4 cm. Sternum and manubrium are intact. Multiple old right rib fractures. Healing left anterior fifth and sixth rib fractures. Chronic appearing L1 compression fracture with fusion of the anterior T12 and L1 vertebral bodies. Impression: 1. Size increased right upper lobe mass with adjacent fourth rib fracture. 2. New infiltrate evaluated mass along the left paracolic gutter near the splenic flexure. Nonemergen t abdomen pelvis CT recommended. 3. No pulmonary embolism. 4. Multiple old fractures with a subacute left-sided rib fractures, not significantly displaced. 5. Moderate sliding hiatal hernia. 6. New left upper lobe pulmonary nodule axial image 18 concerning for new metastatic focus measuring 11 mm.
[2019-06-14] MEDS ORDERED: ISOVUE-370 76%-LOCM 1 ML ONE (12:00)
[2019-06-14 12:07] LABS: Bilirubin Negative (Negative); Blood, Urine Negative (Negative); Clarity Turbid (Clear); Glucose, Urine (Dipstick) Normal (Negative); Leukocyte 500 Leu/uL (Negative); Nitrite Negative (Negative); Protein, Urine (Dipstick) 20 mg/dL (Neg-Trace); Renal Epithelial 0-3 HPF (None Seen); Transitional Epithelial 0-3 HPF (None Seen); WBC/HPF Greater than 50 HPF (0-3)
[2019-06-14 12:15] LABS: Bacteria/HPF Rare-Few HPF (None Seen); RBC/HPF 0-3 HPF (0-3)
[2019-06-14] MEDS ORDERED: Benzonatate 100 MG CAP PO PRN (14:01)
[2019-06-14] MEDS ORDERED: hydrALAZINE 20 MG/ML VIAL SLOW IVP PRN (14:01)
[2019-06-14] MEDS ORDERED: Bisacodyl 5 MG TAB PO PRN (14:01)
[2019-06-14 14:43] LABS: Lactic Acid 2.5 mmol/L (0.5-2.2)
--- NOTE | 2019-06-14 17:20 | CON ---
DATE OF CONSULTATION: 06/14/2019 This is 50 minutes time of that time, greater than 50% was spent with the patient and/or the patient's unit in the hospital. HISTORY OF THE PRESENT ILLNESS: I have been asked to see this patient in consultation because she is experiencing increasing shortness of breath. She is a 78-year-old, who has a history of lung cancer. She also has concurrent COPD. She presented with shortness of breath, but no wheezing or edema. She had a CT scan done today, which demonstrated increasing right upper lobe mass with adjacent fourth rib fractures. This was compared to the previous PET scan. She also has a new left upper lobe nodular area and infiltrate along the left pericolic gutter near the splenic flexure. She says that she has been undergoing immunotherapy for her lung cancer after completing chemotherapy. She has had no fever, chills, or chest pain. PAST MEDICAL HISTORY: 1. 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 This was originally diagnosed in the fall of 2018. 2. Chronic obstructive pulmonary disease. 3. Gastroesophageal reflux. 4. Hypertension. 5. Hypothyroidism. 6. Osteoporosis. PAST SURGICAL HISTORY: 1. She has had a right thoracotomy. 2. Thyroidectomy. 3. Hysterectomy. 4. Ankle surgery. SOCIAL HISTORY: Former smoker, quit more than 10 years ago. ALLERGIES: SULFA DRUGS. MEDICATIONS: 1. Metoprolol. 2. Lisinopril. 3. Levothyroxine. 4. Hydrocodone. 5. Furosemide. 6. Cholecalciferol. 7. Aspirin. 8. I believe she uses some type of inhaler at home. Current inpatient medications; 1. Acetaminophen. 2. DuoNeb. 3. Tessalon. 4. Dulcolax. 5. Lovenox. 6. Pepcid. 7. Apresoline. 8. Levaquin. 9. Methylprednisolone. REVIEW OF SYSTEMS: Ten-point review of systems is otherwise negative. PHYSICAL EXAMINATION: VITAL SIGNS: Temperature 97.4, pulse 101, respirations 18, O2 saturation 97% room air, and blood pressure 124/77. GENERAL: She is awake, alert, and pleasant, in no distress. HEENT: Pupils reactive. Sclerae anicteric. Oropharynx clear. NECK: No palpable adenopathy or JVD. LUNGS: Diminished breath sounds right upper lobe compared to left. She has scattered crackles both bases. CARDIAC: S1 and S2. Regular with a 2/6 systolic murmur. ABDOMEN: Soft and nontender to palpation. EXTREMITIES: No clubbing, cyanosis, or edema. NEUROLOGIC: Nonfocal. IMAGING DATA: I reviewed the CT personally and agree with the radiologist's interpretation. LABORATORY DATA: White blood cell count 32, hematocrit 27.6, and platelet count 477. Sodium 138, potassium 3.5, chloride 97, CO2 of 28, BUN 13, creatinine 0.7, and glucose 127. BNP is 794. ASSESSMENT: 1. Right upper lobe pneumonitis versus extension or recurrence of lung cancer. 2. Chronic obstructive pulmonary disease. PLAN: I have reviewed Dr. Newton's orders and I agree with administration of antibiotics, steroids, nebulization therapy, and oxygen as needed. I will notify Dr. Spencer, the patient's admission. Job ID: [id number]
--- NOTE | 2019-06-14 19:16 | HP ---
PRIMARY CARE PHYSICIAN: Maikol Ford MD CHIEF COMPLAINT: Finding it hard to breathe. HISTORY OF PRESENT ILLNESS: Ms. Lemos is a very pleasant 78-year-old female, who was diagnosed with high-grade sarcoma about a little over year ago. At that time, she underwent a right upper and middle lobectomy. She is undergoing chemotherapy and radiation and this was changed to an immunotherapy about 6 months ago. She says that in the last 2 to 3 weeks, she is finding it harder and harder to breathe. She says it is with just minimal movement. She says that she feels exhausted and she notices that she has been coughing as well. She says that the cough is essentially dry. She does not feel congested. There has been no fevers. No chills. She has had some nausea and has spit up a little bit. She says that she gets exhausted with just eating, and as a result, has been losing some weight and she also feels a little bit constipated. As a result of this severe dyspnea, she came to the ER for evaluation. She had a CT angiogram of her chest due to concerns for possible PE; however, this was negative for PE, but it did show signs of an enlarging lung mass as well as a new area in the left upper lobe and no evidence of PE and she is being admitted for further evaluation. REVIEW OF SYSTEMS: All systems were reviewed and are negative except for that mentioned in the history of present illness. PAST MEDICAL HISTORY: Significant for high-grade sarcoma, COPD, and she had a pulmonary function test a year ago showing some mild obstructive pattern. Also has history of hypertension and hypothyroidism. PAST SURGICAL HISTORY: She has had a right upper and middle lobectomy and mediastinal dissection. ALLERGIES: TO SULFA. SOCIAL HISTORY: She is . She has 4 children. She lives alone. She gets around with a walker and a cane. Her code status, she said she had never really given it much thought. She is a bit ambivalent about whether she should be full code or DNR. Therefore, we will keep her as a full code. FAMILY HISTORY: No history of any heritable diseases. CURRENT MEDICATIONS: She is not really sure the names and doses of the medicines. She said she is on a levothyroxine, which she believes is 150 mcg daily. She says she is on a fluid pill and says she had been taken off blood pressure medicine. PHYSICAL EXAMINATION: GENERAL: She is alert and oriented. She appears to be in no acute distress. She is chronically ill and frail in appearance. VITAL SIGNS: Blood pressure was 143/88, heart rate 99, respiratory rate of 26, temperature is 97.9. HEENT: Pupils are equal, round, and reactive to light. Extraocular muscles are intact. Her sclerae are anicteric. Throat, no erythema, no exudates. NECK: No adenopathy. No bruits. LUNGS: She has rales in both her right and left mid lung zone as well as some mild expiratory wheeze. There are no rhonchi. CARDIOVASCULAR: She does have a fairly loud grade 2/6 systolic murmur throughout the entire precordium. ABDOMEN: Soft, nontender, nondistended. Positive for bowel sounds. There is no rebound. No guarding. EXTREMITIES: There is no clubbing or cyanosis. No edema, but she does have some chronic venous stasis changes. NEUROLOGIC: Grossly nonfocal. LABORATORY DATA: CT scan of the chest as previously mentioned. On her CBC, the white blood cell count is 32, hemoglobin 8.8, hematocrit 27.6, and platelet count is 477. Sodium 138, potassium 3.5, chloride is 97, CO2 is 28, BUN of 13, creatinine 0.75, glucose is 127. Lactic acid 2.6. Urinalysis shows rare bacteria, greater than 50,000 wbc's, and positive leukocyte esterase. ASSESSMENT: This is a pleasant 78-year-old female, who presents to the emergency room complaining of worsening shortness of breath over the past 2 to 3 weeks. This could be related to the progressing tumor. However, she could also have some superimposed chronic obstructive pulmonary disease exacerbation or even an early pneumonia as well. For the acute on chronic respiratory failure with hypoxemia, she will be admitted, started on IV antibiotics, DuoNeb, and IV steroids. Due to her complicated pulmonary history, we will consult her fuel efficient automobile designer. 1. High-grade sarcoma. This appears to be progressing. We will consult Dr. Naranjo as she was scheduled to have immunotherapy tomorrow and we will also consult Palliative Care as it looks like over the past few months, her tumor has steadily been enlarging based on her CT scans and hopefully they can help her to make a decision about code status and ongoing care. 2. Hypertension. She says her blood pressure is usually low. We will place her on p.r.n. medications for this. 3. Hypothyroidism. Continue her Synthroid. We will need to reconcile her dose. 4. She will be placed on deep venous thrombosis and gastrointestinal prophylaxis. Job ID: [id number]
[2019-06-14] MEDS: Famotidine 20 MG TAB PO SCH (20:25)
[2019-06-14] MEDS: Acetaminophen 325 MG TAB PO PRN (20:26)
[2019-06-15 06:25] LABS: Band 11 % (5-11); Lymphocytes 1 % (21-51); MDiff Complete? YES; Mean Corpuscular HGB CONC 32.1 g/dL (32.0-36.0); Mean Corpuscular Hemoglobin 35.3 pg (27.0-31.0); Mean Platelet Volume 6.6 fL (7.4-10.4); Monocytes 2 % (0-10); Neutrophil 86 % (42-75); Platelet Count 415 thou/uL (130-400); Platelet Morphology Comment Appears Increased; RBC Distribution Width 16.7 % (11.5-14.5); Red Blood Cell (RBC) Count 2.27 mill/uL (4.20-5.40); White Blood Cell (WBC) Count 33.6 thou/uL (4.8-10.8)
[2019-06-15 06:28] LABS: Anion Gap 12 mmol/L (10-20); BUN (Urea Nitrogen) 15 mg/dL (9.8-20.1); Calc. Creatinine Clearance 63 mL/min (70-130); Calcium 8.7 mg/dL (7.8-10.44); Carbon Dioxide 29 mmol/L (23-31); Chloride 97 mmol/L (98-107); Estimated GFR-MDRD 76; Glucose 147 mg/dL (83-110); Potassium 3.7 mmol/L (3.5-5.1); Sodium 134 mmol/L (136-145)
[2019-06-15] MEDS: methylPREDNISolone Sod Succ 40 MG VIAL IVP SCH (08:44)
[2019-06-15] MEDS: Enoxaparin Sodium 40 MG/0.4 ML SYRINGE SC SCH (08:45)
[2019-06-15] MEDS: Vancomycin HCl 1 GM in Premix Bag 1 BAG IVPB SCH (08:46)
[2019-06-15] MEDS ORDERED: Vancomycin HCl 1 GM in Premix Bag 1 BAG IVPB SCH (09:00)
[2019-06-15] MEDS: Famotidine 20 MG TAB PO SCH ×2 (09:30→20:56)
[2019-06-15] MEDS ORDERED: ISOVUE-370 76%-LOCM 1 ML ONE (12:00)
--- NOTE | 2019-06-15 14:00 | PDOC.HOSPP ---
- Subjective Encounter Date: 06/15/19 Encounter Time: 13:59 Subjective: Ms. Lemos was seen today in follow-up of respiratory failure. She says she does not feel much better today. No new complaints. - Objective Vital Signs & Weight: Vital Signs (12 hours) Temp Pulse Resp BP Pulse Ox 06/15/19 07:30 97.5 F L 103 H 16 122/77 100 06/15/19 07:09 99 16 92 L Weight Admit Weight 143 lb 1 oz Weight 143 lb 1 oz I&O: 06/14/19 06/15/19 06/16/19 06:59 06:59 06:59 Intake Total 260 240 Balance 260 240 Result Diagrams: 06/15/19 05:50 06/15/19 05:50 Hospitalist ROS - Medication Medications: Active Medications Generic Name Dose Route Start Last Admin Trade Name Freq PRN Reason Stop Dose Admin Acetaminophen 650 mg 06/14/19 14:01 06/14/19 20:26 Tylenol PO 650 mg Q4H PRN Administration Headache/Fever/Mild Pain (1-3) Albuterol/Ipratropium 3 ml 06/14/19 19:00 06/15/19 12:47 Duoneb NEB 3 ml [id number] FLORINA Administration Bisacodyl 10 mg 06/14/19 14:01 06/15/19 08:47 Dulcolax PO 10 mg DAILYPRN PRN Administration Constipation Enoxaparin Sodium 40 mg 06/15/19 09:00 06/15/19 08:45 Lovenox SC 40 mg 0900 FLORINA Administration Famotidine 20 mg 06/14/19 21:00 06/15/19 09:30 Pepcid PO 20 mg BID FLORINA Administration Levofloxacin 750 mg/ Device 150 mls @ 100 mls/hr 06/15/19 12:00 06/15/19 11: 24 IVPB 150 mls 1200 FLORINA Administration Vancomycin HCl 1 gm/ Device 200 mls @ 200 mls/hr 06/15/19 09:00 06/15/19 08: 46 IVPB 200 mls 0900 FLORINA Administration Methylprednisolone Sodium Succinate 40 mg 06/15/19 09:00 06/15/19 08:44 Solu-Medrol IVP 40 mg DAILY FLORINA Administration - Exam Eye: PERRL Heart: RRR, no murmur, no gallops, no rubs, normal peripheral pulses Respiratory: rales (+ decreased breath sounds at the bases) Gastrointestinal: soft, non-tender, non-distended, normal bowel sounds, no palpable masses, no hepatomegaly Extremities: no cyanosis, no clubbing, no edema Hosp A/P (1) Acute respiratory failure with hypoxemia Code(s): J96.01 - ACUTE RESPIRATORY FAILURE WITH HYPOXIA Status: Acute (2) Stage 4 lung cancer Code(s): C34.90 - MALIGNANT NEOPLASM OF UNSP PART OF UNSP BRONCHUS OR LUNG Status: Chronic (3) Leukocytosis Code(s): D72.829 - ELEVATED WHITE BLOOD CELL COUNT, UNSPECIFIED Status: Acute - Plan * Acute respiratory failure- likely in part due to COPD exacerbation * Will continue Duonebs, steroids, and and Levaquin * Will add Vancomycin due to the Leukocytosis, but this could be a leukomoid reaction from the cancer * Await further recommendations from Her Learning Support Aide and Oncologist
--- NOTE | 2019-06-15 15:54 | PRG ---
DATE OF SERVICE: 06/15/2019 SUBJECTIVE: Maryann Lemos has no complaints. She says she is feeling better when she is admitted. OBJECTIVE: VITAL SIGNS: She is afebrile. Heart rate is 103, respiratory rate 16, oximetry is 92% on room air, blood pressure 122/77. LUNGS: Free of wheezes. HEART: Regular rhythm. ABDOMEN: Soft. IMPRESSION: 1. Pulmonary sarcoma. 2. Chronic obstructive pulmonary disease. 3. Hypothyroidism, on replacement. 4. ? coexistent pneumonia. PLAN: She probably can be switched to p.o. medications tomorrow if she continues to improve. We will follow with the other physicians. Job ID: [id number]
--- NOTE | 2019-06-15 18:14 | CT ---
CT Abdomen Pelvis W Con: 06/15/2019 2:14 PM CLINICAL INFORMATION: Lung cancer with possible colon mass COMPARISON: None. TECHNIQUE: Multiple contiguous axial images were obtained and a CT of the abdomen and pelvis with IV contrast. Oral contrast was administered. Coronal and sagittal reformats were performed. FINDINGS: Lower Chest: There is a 4.6 cm mass in the right lower chest extending through the intercostal space and causing osseous changes to the third and fourth ribs. There also appears to be a smaller mass partially visualized on the superiormost slice along the anterior pleura in the right thorax. Abdomen: Liver: within normal limits. Bile Ducts: Normal caliber. Gallbladder: No calcified gallstones. Normal caliber wall. Pancreas: within normal limits. Spleen: within normal limits. Adrenals: within normal limits. Kidneys: within normal limits. Pelvis: Reproductive Organs: Status post hysterectomy. Ureters: within normal limits. Bladder: within normal limits. Peritoneum: No ascites or free air, no fluid collection. There is a 3.6 cm mass in the left upper bertha drant of the abdomen separate from the spleen and colon. Bowel: There is severe thickening of the wall of the proximal small bowel to 3.4 cm in width. The ora l contrast passes through this thickened bowel into the more distal small bowel. The colon is lateral to this thickened bowel. Scattered diverticula in the colon. Mesentery and Retroperitoneum: No enlarged mesenteric or retroperitoneal lymph nodes. Vessels: Atherosclerotic calcifications. Abdominal Wall: There is a mass measuring 3.1 cm in size along the right anterior rectus sheath. Ther e is a small fat-containing umbilical hernia. Bones: Degenerative changes in the spine. There is a 7.6 cm mass in the right posterior hip musculatu re. IMPRESSION: 1. Complex mass involving the most proximal small bowel may represent lymphoma, a small bowel maligna ncy, or metastatic disease. 2. There appears to be metastatic disease in the left upper quadrant of the abdomen. 3. Multiple lower right abdominal masses likely represent metastatic disease. 4. Mass along the right anterior rectus sheath and mass in the right posterior hip musculature likely represents metastatic disease.
[2019-06-15] MEDS: traZODone HCl 50 MG TAB PO PRN (20:56)
[2019-06-15] MEDS: Acetaminophen 325 MG TAB PO PRN (20:57)
--- NOTE | 2019-06-15 22:00 | CON ---
DATE OF CONSULTATION: REASON FOR CONSULT: Lung cancer. HISTORY OF PRESENT ILLNESS: Ms. 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 She has undergone a lobectomy, medial lymph node dissection, and completed chemo-radiation in December of 2018. She has been on Imfinzi immunotherapy since that time. Over the last several weeks, she has been having worsening fatigue, leukocytosis; and shortness of breath which she has attributed to her COPD. She was not having any rash, itching, abdominal pain, diarrhea, or chest pain consistent with immune mediated process. She presented to the emergency room this weekend with shortness of breath. She underwent a CT angio of the chest, which showed no pulmonary emboli. Unfortunately, it did show an increase in size of her right upper lobe mass. There was a new left upper lobe pulmonary nodule measuring 11 mm. There was also a poorly evaluated mass along the left pericolonic gutter near the splenic flexure. It was measuring 4 cm. The patient states she has improved since admission. She has been on steroids and antibiotics. Dr. Spencer, her millwright supervisor, has seen her. She sitting in the chair with nonlabored respirations and no oxygen. PAST MEDICAL HISTORY: 1. 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 3. Emphysema. 4. Hypertension. 5. Hypothyroidism. PAST SURGICAL HISTORY: 1. Thoracotomy. 2. Vaginal prolapse. 3. Colon resection. 4. Hiatal hernia. 5. Bladder lift, hysterectomy and orthopedic surgeries. ALLERGIES: SULFA. HOME MEDICATIONS: 1. Aspirin. 2. Levothyroxine. 3. Tramadol. 4. Trazodone. 5. D3. SOCIAL HISTORY: She is , has four children, 68 pack-year history of smoking, quit a number of years ago. REVIEW OF SYSTEMS: Positive for shortness of breath, cough, and back pain. PHYSICAL EXAMINATION: VITAL SIGNS: Temperature is 98.0, pulse is 105, respiratory rate 17, blood pressure is 124/81. She is 92% on room air. GENERAL: This is a well-developed, well-nourished female, in no acute distress. HEENT: Normocephalic, atraumatic. Pupils are equal and reactive to light. NECK: Supple. CV: Regular rate and rhythm. She has a 3/6 murmur. ABDOMEN: Soft and nontender. Bowel sounds are positive. EXTREMITIES: No clubbing or cyanosis. SKIN: No rash. HEMATOLOGICAL: No petechiae or purpura. NEUROLOGICAL: Nonfocal. PERTINENT LABS AND X-RAYS: Current WBCs 33.6, platelet count is 8, hemoglobin is 8, hematocrit is 24.9, platelet count is 415,000. She got 86% neutrophils, 11% bands, and 1% lymphocytes. Sodium is 134, potassium 3.7, chloride 97, CO2 is 29, BUN is 15, creatinine is 0.74, lactic acid 2.5, calcium 8.7, bilirubin 0.5, AST is 18, ALT is 9, alkaline phosphatase is 125. BNP is 794. Serum total protein is 6.8, albumin 3.2, globulin 3.6. Urine showed no bacteria. ASSESSMENT: 1. Stage IV sarcomatoid lung cancer with possible progression. 2. Chronic obstructive pulmonary disease. 3. Possible pneumonia. 4. Questionable left colon mass. DISCUSSION: The patient has been switched to oral antibiotics. She continues on steroids. I will order a CT scan of her abdomen and pelvis to further explore the colonic mass. Case has been discussed with Dr. Naranjo. We will follow up on these results. Thank you for the consult. Job ID: [id number] MTDD
[2019-06-16 06:06] LABS: Hemoglobin 8.2 g/dL (12.0-16.0); Mean Corpuscular HGB CONC 31.7 g/dL (32.0-36.0); Mean Corpuscular Hemoglobin 35.4 pg (27.0-31.0); Mean Platelet Volume 6.6 fL (7.4-10.4); Platelet Count 443 thou/uL (130-400); RBC Distribution Width 16.9 % (11.5-14.5); Red Blood Cell (RBC) Count 2.33 mill/uL (4.20-5.40); White Blood Cell (WBC) Count 41.5 thou/uL (4.8-10.8)
[2019-06-16 06:20] LABS: Anion Gap 12 mmol/L (10-20); BUN (Urea Nitrogen) 13 mg/dL (9.8-20.1); Calc. Creatinine Clearance 65 mL/min (70-130); Calcium 8.8 mg/dL (7.8-10.44); Carbon Dioxide 30 mmol/L (23-31); Chloride 96 mmol/L (98-107); Estimated GFR-MDRD 78; Glucose 134 mg/dL (83-110); Potassium 3.6 mmol/L (3.5-5.1); Sodium 134 mmol/L (136-145)
[2019-06-16 06:25] LABS: Hypochromia SLIGHT = 6-15 cells (100X) (0-5/hpf); Lymphocytes 2 % (21-51); MDiff Complete? YES; Macrocytosis SLIGHT = 6-15 cells (100X) (0-5/hpf); Monocytes 3 % (0-10); Neutrophil 95 % (42-75); Platelet Morphology Comment Appears Increased
[2019-06-16] MEDS: Vancomycin HCl 1 GM in Premix Bag 1 BAG IVPB SCH (08:44)
[2019-06-16] MEDS: Enoxaparin Sodium 40 MG/0.4 ML SYRINGE SC SCH (08:53)
[2019-06-16] MEDS: methylPREDNISolone Sod Succ 40 MG VIAL IVP SCH ×2 (08:54→22:08)
[2019-06-16] MEDS: Famotidine 20 MG TAB PO SCH ×2 (10:25→20:04)
[2019-06-16 12:00] LABS: Actual Bicarbonate (HCO3a) 31.4 mEq/L (22-28); Base Excess (BEa) 3.6 mEq/L (-2.0 to +3.0); Calcium, Ionized 1.21 mmol/L (1.12-1.30); Carboxyhemoglobin (COHb) 1.3 gm% (0.0-3.0); O2 Tension (PaO2) 63.5 mmHg (> 70.0); pH, Arterial 7.29 (7.35-7.45)
[2019-06-16 12:05] LABS: CO2 Tension 67.5 mmHg (35.0-45.0)
[2019-06-16 12:06] LABS: ALV-art Gradient 108.805 (0-20); Puncture Site RR
--- NOTE | 2019-06-16 12:46 | RAD ---
PORTABLE CHEST: HISTORY: Dyspnea. COMPARISON: 06/14/2019 FINDINGS: Heart size is within normal limits. Elevation of the right hemidiaphragm is noted. Parenchymal lung c hanges in the right lung are similar to the prior examination. There is worsening left perihilar and lower lobe parenchymal change as compared to that prior study. IMPRESSION: Worsening left mainly perihilar lung changes. Although this could represent some type of asymmetric e michell pattern in this patient, I would favor this represents infiltrative change. Follow-up chest film s would be recommended. POS: DANY
--- NOTE | 2019-06-16 13:33 | PDOC.HOSPP ---
- Subjective Encounter Date: 06/16/19 Encounter Time: 13:31 Subjective: Ms. Lemos was seen today in follow-up of respiratory failure. She has been more short of breath this morning. She was moved to the ICU and placed on BiPAP. - Objective Vital Signs & Weight: Vital Signs (12 hours) Pulse Resp Pulse Ox 06/16/19 12:57 121 H 06/16/19 10:21 101 H 24 H 93 L 06/16/19 08:00 95 06/16/19 06:46 92 16 94 L Weight Admit Weight 143 lb 1 oz Weight 143 lb 1 oz I&O: 06/15/19 06/16/19 06/17/19 06:59 06:59 06:59 Intake Total 260 1950 Balance 260 1950 Result Diagrams: 06/16/19 05:25 06/16/19 05:25 Hospitalist ROS - Medication Medications: Active Medications Generic Name Dose Route Start Last Admin Trade Name Freq PRN Reason Stop Dose Admin Acetaminophen 650 mg 06/14/19 14:01 06/15/19 20:57 Tylenol PO 650 mg Q4H PRN Administration Headache/Fever/Mild Pain (1-3) Albuterol/Ipratropium 3 ml 06/14/19 19:00 06/16/19 13:01 Duoneb NEB 3 ml [id number] FLORINA Administration Bisacodyl 10 mg 06/14/19 14:01 06/15/19 08:47 Dulcolax PO 10 mg DAILYPRN PRN Administration Constipation Enoxaparin Sodium 40 mg 06/15/19 09:00 06/16/19 08:53 Lovenox SC 40 mg 0900 FLORINA Administration Famotidine 20 mg 06/14/19 21:00 06/16/19 10:25 Pepcid PO Not Given BID FLORINA Levofloxacin 750 mg/ Device 150 mls @ 100 mls/hr 06/15/19 12:00 06/15/19 11: 24 IVPB 150 mls 1200 FLORINA Administration Vancomycin HCl 1 gm/ Device 200 mls @ 200 mls/hr 06/15/19 09:00 06/16/19 08: 44 IVPB 200 mls 0900 FLORINA Administration Methylprednisolone Sodium Succinate 40 mg 06/15/19 09:00 06/16/19 08:54 Solu-Medrol IVP 40 mg DAILY FLORINA Administration Trazodone HCl 50 mg 06/15/19 19:47 06/15/19 20:56 Desyrel PO 50 mg HS PRN Administration Insomnia - Exam Eye: PERRL Heart: RRR, no murmur, no gallops, no rubs, normal peripheral pulses Respiratory: no wheezes, no ronchi (+ coarse breath sounds bilaterally) Gastrointestinal: soft, non-tender, non-distended, normal bowel sounds, no palpable masses Extremities: no edema Hosp A/P (1) Acute respiratory failure with hypoxemia Code(s): J96.01 - ACUTE RESPIRATORY FAILURE WITH HYPOXIA Status: Acute (2) Stage 4 lung cancer Code(s): C34.90 - MALIGNANT NEOPLASM OF UNSP PART OF UNSP BRONCHUS OR LUNG Status: Chronic (3) Leukocytosis Code(s): D72.829 - ELEVATED WHITE BLOOD CELL COUNT, UNSPECIFIED Status: Acute - Plan * Acute respiratory failure- agree with transfer to the ICU, and BiPAP * Will continue IV antibiotics and steroids * CT scan of the abdomen notes- patient has advanced cancer * Prognosis is guarded * Await further recommendations from Her Associate Professor Physician and Oncologist
--- NOTE | 2019-06-16 13:44 | PDOC.MOPN ---
Interval History: Patient had worsening shortness of breath this am. Moved to ICU and now on BiPAP. - Vital Signs Vital Signs: Vital Signs (12 hours) Temp Pulse Resp Pulse Ox 06/16/19 12:57 121 H 06/16/19 12:45 97.2 F L 06/16/19 10:21 101 H 24 H 93 L 06/16/19 08:00 95 06/16/19 06:46 92 16 94 L Weight Admit Weight 144 lb 9.972 oz Weight 143 lb 1 oz Most Recent Monitor Data Heart Rate from ECG 115 NIBP 106/88 NIBP BP-Mean 94 Respiration from ECG 22 SpO2 99 - Physical Exam General: Alert HEENT: Atraumatic Lungs: Other Cardiovascular: Regular rate, Other (pvc's) Abdomen: Normal bowel sounds Extremities: No clubbing, No cyanosis, No edema, Normal pulses, No tenderness/ swelling Skin: No rashes, No breakdown, No significant lesion Neurological: Other Psych/Mental Status: Mental status NL - Labs Result Diagrams: 06/16/19 05:25 06/16/19 05:25 Lab results: Laboratory Results - last 24 hr 06/16/19 11:50: Specimen Type ARTERIAL, Puncture Site RR, Bicarbonate Actual 31.4 H, ABG pH 7.29 L, ABG pCO2 67.5 H*, ABG pO2 63.5, ABG O2 Sat Calc/Suhas 88.8 L, ABG O2 Content 12.3 L, ABG Base Excess 3.6 H, ABG Hematocrit 29.0 L, ABG Hemoglobin 10.0 L, ABG Oxyhemoglobin 87.4 L, ABG Carboxyhemoglobin 1.3, ABG Methemoglobin 0.30, ABG Deoxyhemoglobin 11.0 H, Beka Test POSITIVE, A-a O2 Gradient 108.805 H, Ionized Calcium 1.21, Mode of Support 4LNC, Inspired O2 36, Sodium 132 L, Potassium 4.10, Chloride 95 L 06/16/19 05:25: WBC 41.5 H*, RBC 2.33 L, Hgb 8.2 L, Hct 26.0 L, MCV 112.0 H, MCH 35.4 H, MCHC 31.7 L, RDW 16.9 H, Plt Count 443 H, MPV 6.6 L, Neutrophils % ( Manual) 95 H, Lymphocytes % (Manual) 2 L, Monocytes % (Manual) 3, Neutrophils # Not Reportable, Lymphocytes # Not Reportable, Hypochromia SLIGHT = 6-15 cells, Plt Morphology Comment Appears Increased H, Macrocytosis SLIGHT = 6-15 cells 06/16/19 05:25: Sodium 134 L, Potassium 3.6, Chloride 96 L, Carbon Dioxide 30, Anion Gap 12, BUN 13, Creatinine 0.72, Estimated GFR (MDRD) 78, Glucose 134 H, Calcium 8.8 Status: lab reviewed by me A/P - Problem (1) Leukocytosis Current Visit: Yes Code(s): D72.829 - ELEVATED WHITE BLOOD CELL COUNT, UNSPECIFIED Status: Acute (2) Stage 4 lung cancer Current Visit: Yes Code(s): C34.90 - MALIGNANT NEOPLASM OF UNSP PART OF UNSP BRONCHUS OR LUNG Status: Chronic - Plan Plan: 1. Patient on Bipap, managed by Dr. Spencer 2. was planning biopsy of abdominal wall mass to further characterize mets or new primary 3. Discussed code status with son. 4. Dr. Naranjo will follow.
--- NOTE | 2019-06-16 15:51 | PQF ---
BRISEIDA VERMAPOWER [id number] [facility]- B07 [id number] CLINICAL DOCUMENTATION IMPROVEMENT CLARIFICATION FORM: ICD-10 Updated PLEASE DO AN ADDENDUM TO THE PROGRESS NOTE WITH ANY DOCUMENTATION UPDATES OR ADDITIONS AND CARRY THROUGH TO DC SUMMARY. THANK YOU. DATE: 06/16/2019, 06/17/2019 , 06/18/2019 ATTN:DR. Manny CALDWELL, DR. Johnathan GOODWIN Please exercise your independent, professional judgment in responding to the clarification form. Clinical indicators are provided on the bottom of this form for your review. Please check appropriate box(s): [ X] Aspiration Pneumonia [ ] Pneumonia secondary to (specify organism / underlying disease) [ ] Simple Pneumonia (community acquired - nosocomial) [ ] Other diagnosis [ ] Unable to determine In addition, please specify: Present on Admission (POA): [ X] Yes [ ] No [ ] Unable to determine For continuity of documentation, please document condition throughout progress notes and discharge summary. Thank You. CLINICAL INDICATORS - SIGNS / SYMPTOMS / LABS / RESULTS AND LOCATION IN MR 06/14 WBC 32.0 06/15 WBC 33.6 06/16 WBC 41.5 06/14 CONSULT (ELIANA) ASSESSMENT: 1). RIGHT LOBE PNEUMONITIS VERSUS EXTENSION OR RECURRENCE OF LUNG CANCER. 06/15 PN (APOORVA) IMPRESSION: 4. ? COEXISTENT PNEUMONIA 06/15 CONSULT (ANA) ASSESSMENT: 3). POSSIBLE PNEUMONIA 06/16 PN ( CHRISTA) SHE HAS BEEN MORE SHORT OF BREATH THIS MORNING , SHE WAS MOVED TO ICU AND PLACED ON BIPAP RISK: ADVANCED AGE (78), HX LOBECTOMY, UNDERGOING CHEMOTHERAPY/RADIATION, COPD EXACERBATION, HIGH GRADE SARCOMA (H&P/ CHRISTA) 06/14 TREATMENTS: LEVAQUIN IV (06/15-PRESENT) VANCOMYCIN IV( 06/15-PRESENT) PULMONOLOGY CONSULT (06/14) SUPPLEMENTAL OXYGEN ( 06/14 - PRESENT) THANK YOU! FREDI (This form is maintained as a part of the permanent medical record) 2014 [employer]. All Rights Reserved [email or web address] [phone] [email or web address]
--- NOTE | 2019-06-16 19:46 | PRG ---
DATE OF SERVICE: 06/16/2019 Maryann Lemos developed more respiratory distress today. She was transferred to the critical care unit. Once BiPAP was initiated, she immediately felt better. Chest x-ray done just before lunch prior to transfer to the critical care unit showed more infiltrates in both hilar areas. I suspect this is atelectasis secondary to mucus plugging. Her rhonchi improved with BiPAP. Heart, regular rhythm. Abdomen is soft. She has a 4.6 cm mass in the right lower chest seen on her abdomen CT through 3rd and 4th ribs. A 3.6 cm mass is seen in the left upper quadrant, separate from the spleen and colon. There is a 3.1 cm mass in the right anterior rectus sheath. There is a 7.6 cm mass in the right posterior hip musculature. I suspect all of these are sarcomatous lesions. Jasmyn Zuleta has asked family to discuss code status, amongst themselves and with her. White count up to 41,000 today. She remains on steroids and antibiotics. Blood cultures were negative. I doubt she has an MRSA infection, so her vancomycin will be discontinued. She certainly could be aspirating. Zosyn will be added this evening. We would not be surprised if she does not have some degree of endobronchial disease. She clinically has a very aggressive tumor. Her nebulizer frequency will be changed to every 4 hours. Her steroid dosing will be increased. She will remain in the critical care unit for now. Job ID: [id number]
[2019-06-16] MEDS: Sodium Chloride 0.9% 1,000 ML IV SCH (22:07)
[2019-06-16] MEDS: traZODone HCl 50 MG TAB PO PRN (22:31)
[2019-06-17] MEDS: Piperacillin/Tazobactam 3.375 GM in Sodium Chloride 0.9% 100 ML IVPB SCH ×5 (00:02→23:19)
[2019-06-17] MEDS: Lorazepam 0.5 MG TAB PO PRN ×2 (02:46→20:19)
[2019-06-17] MEDS: methylPREDNISolone Sod Succ 40 MG VIAL IVP SCH ×3 (05:24→22:25)
--- NOTE | 2019-06-17 08:06 | PDOC.MOPN ---
Interval History: breathing is better. mild cough. no pain - Vital Signs Vital Signs: Vital Signs (12 hours) Temp Pulse 06/17/19 04:00 98.1 F 06/17/19 02:13 107 H 06/17/19 00:00 97.8 F Weight Admit Weight 144 lb 9.972 oz Weight 143 lb 1 oz Most Recent Monitor Data Heart Rate from ECG 101 NIBP 123/77 NIBP BP-Mean 92 Respiration from ECG 18 SpO2 97 - Physical Exam General: Alert HEENT: Atraumatic Lungs: Clear to auscultation, Other (lisha scattered wheezes) Cardiovascular: Regular rate, Other (3/9 sm) Abdomen: Normal bowel sounds Extremities: No clubbing Neurological: Normal speech - Labs Result Diagrams: 06/16/19 05:25 06/16/19 05:25 Lab results: Laboratory Results - last 24 hr 06/16/19 11:50: Specimen Type ARTERIAL, Puncture Site RR, Bicarbonate Actual 31.4 H, ABG pH 7.29 L, ABG pCO2 67.5 H*, ABG pO2 63.5, ABG O2 Sat Calc/Suhas 88.8 L, ABG O2 Content 12.3 L, ABG Base Excess 3.6 H, ABG Hematocrit 29.0 L, ABG Hemoglobin 10.0 L, ABG Oxyhemoglobin 87.4 L, ABG Carboxyhemoglobin 1.3, ABG Methemoglobin 0.30, ABG Deoxyhemoglobin 11.0 H, Beka Test POSITIVE, A-a O2 Gradient 108.805 H, Sodium 132 L, Potassium 4.10, Chloride 95 L, Ionized Calcium 1.21, Mode of Support 4LNC, Inspired O2 36 A/P - Problem (1) Lung cancer, lower lobe Current Visit: Yes Code(s): C34.30 - MALIGNANT NEOPLASM OF LOWER LOBE, UNSP BRONCHUS OR LUNG Status: Acute (2) Metastasis Current Visit: Yes Code(s): C79.9 - SECONDARY MALIGNANT NEOPLASM OF UNSPECIFIED SITE Status: Acute (3) Acute respiratory failure with hypoxemia Current Visit: Yes Code(s): J96.01 - ACUTE RESPIRATORY FAILURE WITH HYPOXIA Status: Acute (4) Leukocytosis Current Visit: Yes Code(s): D72.829 - ELEVATED WHITE BLOOD CELL COUNT, UNSPECIFIED Status: Acute - Plan Plan: 1. continue pulmonary support and oxygen 2. we discussed that the diseas ein her abdomen may not be metatatic lung cancer , possibly this is a different disease. Right now she will not be able to undergo a biopsy unless her lungs improve. We will see how she is doing tomorrow 3. i have recommended she be a DNAR, she is thinking about this, consult palliative care 4. will follow with you
[2019-06-17 08:30] LABS: Hemoglobin 8.4 g/dL (12.0-16.0); Mean Corpuscular HGB CONC 31.5 g/dL (32.0-36.0); Mean Corpuscular Hemoglobin 35.5 pg (27.0-31.0); Mean Platelet Volume 6.7 fL (7.4-10.4); Platelet Count 472 thou/uL (130-400); RBC Distribution Width 16.8 % (11.5-14.5); Red Blood Cell (RBC) Count 2.38 mill/uL (4.20-5.40); White Blood Cell (WBC) Count 47.1 thou/uL (4.8-10.8)
[2019-06-17 09:00] LABS: Vancomycin, Trough 4.9 ug/mL
--- NOTE | 2019-06-17 09:02 | PDOC.HOSPP ---
- Subjective Encounter Date: 06/17/19 Encounter Time: 09:02 Subjective: Ms. Lemos was seen today in follow-up of Respiratory failure. She does not have any complaints. She says she is feeling tired. She is breathing better. - Objective Vital Signs & Weight: Vital Signs (12 hours) Temp Pulse Resp Pulse Ox 06/17/19 08:33 99 06/17/19 08:30 111 H 20 99 06/17/19 04:00 98.1 F 06/17/19 02:13 107 H 06/17/19 00:00 97.8 F Weight Admit Weight 144 lb 9.972 oz Weight 143 lb 1 oz Most Recent Monitor Data Heart Rate from ECG 101 NIBP 123/77 NIBP BP-Mean 92 Respiration from ECG 18 SpO2 97 I&O: 06/16/19 06/17/19 06/18/19 06:59 06:59 06:59 Intake Total 1950 870 Output Total 593 Balance 1950 277 Result Diagrams: 06/17/19 08:07 06/16/19 05:25 Hospitalist ROS - Medication Medications: Active Medications Generic Name Dose Route Start Last Admin Trade Name Freq PRN Reason Stop Dose Admin Acetaminophen 650 mg 06/14/19 14:01 06/15/19 20:57 Tylenol PO 650 mg Q4H PRN Administration Headache/Fever/Mild Pain (1-3) Albuterol/Ipratropium 3 ml 06/16/19 22:30 06/17/19 08:30 Duoneb NEB 3 ml [id number] FLORINA Administration Bisacodyl 10 mg 06/14/19 14:01 06/15/19 08:47 Dulcolax PO 10 mg DAILYPRN PRN Administration Constipation Enoxaparin Sodium 40 mg 06/15/19 09:00 06/16/19 08:53 Lovenox SC 40 mg 0900 FLORINA Administration Famotidine 20 mg 06/14/19 21:00 06/16/19 20:04 Pepcid PO 20 mg BID FLORINA Administration Levofloxacin 750 mg/ Device 150 mls @ 100 mls/hr 06/15/19 12:00 06/16/19 14: 18 IVPB 150 mls 1200 FLORINA Administration Piperacillin Sod/Tazobactam 100 mls @ 200 mls/hr 06/16/19 23:59 06/17/19 05: 24 Sod 3.375 gm/ Sodium Chloride IVPB 100 mls Q6HR FLORINA Administration Sodium Chloride 1,000 mls @ 75 mls/hr 06/16/19 21:45 06/16/19 22:07 Normal Saline 0.9% IV 1,000 mls .[id number] FLORINA Administration Lorazepam 0.5 mg 06/16/19 11:54 06/17/19 02:46 Ativan PO 0.5 mg Q4H PRN Administration Anxiety Methylprednisolone Sodium Succinate 40 mg 06/16/19 22:00 06/17/19 05:24 Solu-Medrol IVP 40 mg Q8HR FLORINA Administration Sodium Chloride 10 ml 06/16/19 21:00 06/16/19 20:14 Flush - Normal Saline IVF 10 ml Q12HR FLORINA Administration Trazodone HCl 50 mg 06/15/19 19:47 06/16/19 22:31 Desyrel PO 50 mg HS PRN Administration Insomnia - Exam Eye: PERRL Heart: RRR, no murmur, no gallops, no rubs, normal peripheral pulses Respiratory: CTAB, rales (decreased breath sounds at the bases) Gastrointestinal: soft, non-tender, non-distended, normal bowel sounds, no palpable masses, no hepatomegaly Extremities: no cyanosis, no clubbing, no edema Hosp A/P (1) Acute respiratory failure with hypoxemia Code(s): J96.01 - ACUTE RESPIRATORY FAILURE WITH HYPOXIA Status: Acute (2) Stage 4 lung cancer Code(s): C34.90 - MALIGNANT NEOPLASM OF UNSP PART OF UNSP BRONCHUS OR LUNG Status: Chronic (3) Leukocytosis Code(s): D72.829 - ELEVATED WHITE BLOOD CELL COUNT, UNSPECIFIED Status: Acute - Plan * Acute respiratory failure- Zosyn was added due to concern for aspiration * Vancomycin has been discontinued * Prognosis is guarded * Discussed medical care going forward. Her daughter says that her mother expressed that she is tired of the active care. She has made it clear that she intends to pursue palliative care and even Hospice * A Palliative care consult has been placed.
[2019-06-17 09:03] LABS: Anion Gap 16 mmol/L (10-20); BUN (Urea Nitrogen) 15 mg/dL (9.8-20.1); Calc. Creatinine Clearance 70 mL/min (70-130); Calcium 8.9 mg/dL (7.8-10.44); Carbon Dioxide 28 mmol/L (23-31); Chloride 96 mmol/L (98-107); Estimated GFR-MDRD 85; Glucose 151 mg/dL (83-110); Potassium 4.6 mmol/L (3.5-5.1); Sodium 135 mmol/L (136-145)
[2019-06-17 09:37] LABS: Band 25 % (5-11); Hypochromia SLIGHT = 6-15 cells (100X) (0-5/hpf); Lymphocytes 1 % (21-51); MDiff Complete? YES; Macrocytosis MODERATE=16-30 cells (100X) (0-5/hpf); Neutrophil 74 % (42-75); Ovalocytes SLIGHT = 2-5 cells (100X) (0-1/hpf); Platelet Morphology Comment Appears Increased; Polychromasia SLIGHT = 2-3 cells (100X) (0-2/hpf); Schistocytes SLIGHT = 2-5 cells (100X) (0-1/hpf); Tear Drops SLIGHT = 2-5 cells (100X) (0-1/hpf)
[2019-06-17] MEDS: Famotidine 20 MG TAB PO SCH ×2 (10:45→20:15)
[2019-06-17] MEDS: Enoxaparin Sodium 40 MG/0.4 ML SYRINGE SC SCH (10:59)
[2019-06-17] MEDS: Sodium Chloride 0.9% 1,000 ML IV SCH ×2 (12:44→17:21)
[2019-06-17 14:20] LABS: Actual Bicarbonate (HCO3a) 28.7 mEq/L (22-28); Base Excess (BEa) 1.5 mEq/L (-2.0 to +3.0); Carboxyhemoglobin (COHb) 1.7 gm% (0.0-3.0); Hemoglobin (Hb) 8.4 g/dL (12.0-16.0); O2 Tension (PaO2) 91.9 mmHg (> 70.0); pH, Arterial 7.29 (7.35-7.45)
[2019-06-17 14:21] LABS: CO2 Tension 61.5 mmHg (35.0-45.0); Puncture Site LRA
[2019-06-17 14:22] LABS: ALV-art Gradient 59.385 (0-20)
--- NOTE | 2019-06-17 15:14 | PRG ---
DATE OF SERVICE: 06/17/2019 SUBJECTIVE: Maryann Lemos was taken off noninvasive ventilation this morning. This afternoon, her expiratory phase started getting a little longer and started becoming somnolent. Blood gas shows a pH 7.29, CO2 61, PO2 91, so she has been placed back on noninvasive ventilation. OBJECTIVE: LUNGS: Remarkable for end-expiratory wheezes. HEART: Regular rhythm. ABDOMEN: Soft, nontender. EXTREMITIES: Without edema. We talked about biopsy of one of these abdominal masses. She is undecided as to whether she wants to go through that. We discussed end-of-life issues and mechanical ventilation. I have explained to her that if she is intubated, it is unlikely that she will be extubated without the family having to make a decision to withdraw care. She has informed me that she does not want to be intubated, mechanically ventilated, or resuscitated. We will continue to be aggressive short of that. I will have Palliative Care see her and discuss this with her again to confirm my discussion with her. Unfortunately, at this point in time, I do not see this ending well, no matter what is causing the abdominal mass is. I am not sure she is going to recover enough to be a candidate for treatment of anything based on how she looks at this time. We are dealing predominantly with lung compliance issues, but mostly muscle issues that we do not have a quick fix for her. CRITICAL CARE TIME: 30 minutes. Job ID: [id number]
[2019-06-17] MEDS: traZODone HCl 50 MG TAB PO PRN (20:19)
[2019-06-18] MEDS: Acetaminophen 325 MG TAB PO PRN (01:25)
[2019-06-18] MEDS: Lorazepam 0.5 MG TAB PO PRN ×2 (01:25→21:16)
[2019-06-18] MEDS: Piperacillin/Tazobactam 3.375 GM in Sodium Chloride 0.9% 100 ML IVPB SCH ×4 (06:06→23:39)
[2019-06-18] MEDS: methylPREDNISolone Sod Succ 40 MG VIAL IVP SCH ×3 (06:07→21:16)
[2019-06-18] MEDS: Famotidine 20 MG TAB PO SCH ×2 (08:06→21:14)
[2019-06-18] MEDS: Sodium Chloride 0.9% 1,000 ML IV SCH ×2 (08:07→23:38)
[2019-06-18] MEDS: Enoxaparin Sodium 40 MG/0.4 ML SYRINGE SC SCH (08:07)
--- NOTE | 2019-06-18 09:51 | PDOC.MOPN ---
Interval History: Off Bpap but still very weak. - Vital Signs Vital Signs: Vital Signs (12 hours) Temp Pulse Resp Pulse Ox 06/18/19 08:00 98.2 F 96 06/18/19 06:52 98 06/18/19 06:50 99 14 96 06/18/19 04:00 98.8 F 06/18/19 01:57 101 H 06/18/19 00:00 98.8 F 06/17/19 21:56 118 H Weight Admit Weight 144 lb 9.972 oz Weight 143 lb 11.862 oz Most Recent Monitor Data Heart Rate from ECG 101 NIBP 125/73 NIBP BP-Mean 90 Respiration from ECG 33 SpO2 97 - Physical Exam General: Alert, No acute distress HEENT: Atraumatic Lungs: Other (diminished) Cardiovascular: Other (irregular) Abdomen: Normal bowel sounds, Soft, No tenderness, No hepatospenomegaly, No masses Extremities: No clubbing, No cyanosis, No edema, Normal pulses, No tenderness/ swelling Neurological: Other (weak, nonfocal) - Labs Result Diagrams: 06/17/19 08:07 06/17/19 08:07 Lab results: Laboratory Results - last 24 hr 06/17/19 14:12: Specimen Type ARTERIAL, Puncture Site LRA, Bicarbonate Actual 28.7 H, ABG pH 7.29 L, ABG pCO2 61.5 H*, ABG pO2 91.9 H, ABG O2 Sat Calc/Suhas 96.4, ABG O2 Content 11.3 L, ABG Base Excess 1.5, ABG Hematocrit 25.0 L, ABG Hemoglobin 8.4 L, ABG Oxyhemoglobin 94.5, ABG Carboxyhemoglobin 1.7, ABG Methemoglobin 0.30, ABG Deoxyhemoglobin 3.5 H, Beka Test POSITIVE, A-a O2 Gradient 59.385 H, Sodium 132 L, Potassium 4.30, Chloride 96 L, Ionized Calcium 1.20, Mode of Support NC 3LPM, Inspired O2 32 Status: lab reviewed by me A/P - Problem (1) Leukocytosis Current Visit: Yes Code(s): D72.829 - ELEVATED WHITE BLOOD CELL COUNT, UNSPECIFIED Status: Acute (2) Stage 4 lung cancer Current Visit: Yes Code(s): C34.90 - MALIGNANT NEOPLASM OF UNSP PART OF UNSP BRONCHUS OR LUNG Status: Chronic - Plan Plan: Appreciate Pulm assistance. No biopsy until stronger. Discussed with family at bedside Will follow CBC in am
--- NOTE | 2019-06-18 10:16 | PDOC.HOSPP ---
- Subjective Encounter Date: 06/18/19 Encounter Time: 10:14 Subjective: Ms. Lemos was seen today in follow-up of respiratory failure. She does not have any new complaints. She is breathing ok off Bipap. Her appetite is poor. - Objective Vital Signs & Weight: Vital Signs (12 hours) Temp Pulse Resp Pulse Ox 06/18/19 08:00 98.2 F 96 06/18/19 06:52 98 06/18/19 06:50 99 14 96 06/18/19 04:00 98.8 F 06/18/19 01:57 101 H 06/18/19 00:00 98.8 F Weight Admit Weight 144 lb 9.972 oz Weight 143 lb 11.862 oz Most Recent Monitor Data Heart Rate from ECG 101 NIBP 125/73 NIBP BP-Mean 90 Respiration from ECG 33 SpO2 97 I&O: 06/17/19 06/18/19 06/19/19 06:59 06:59 06:59 Intake Total 870 2117 120 Output Total 593 830 80 Balance 277 1287 40 Result Diagrams: 06/17/19 08:07 06/17/19 08:07 Hospitalist ROS - Medication Medications: Active Medications Generic Name Dose Route Start Last Admin Trade Name Freq PRN Reason Stop Dose Admin Acetaminophen 650 mg 06/14/19 14:01 06/18/19 01:25 Tylenol PO 650 mg Q4H PRN Administration Headache/Fever/Mild Pain (1-3) Albuterol/Ipratropium 3 ml 06/16/19 22:30 06/18/19 06:50 Duoneb NEB 3 ml [id number] FLORINA Administration Bisacodyl 10 mg 06/14/19 14:01 06/15/19 08:47 Dulcolax PO 10 mg DAILYPRN PRN Administration Constipation Enoxaparin Sodium 40 mg 06/15/19 09:00 06/18/19 08:07 Lovenox SC 40 mg 0900 FLORINA Administration Famotidine 20 mg 06/14/19 21:00 06/18/19 08:06 Pepcid PO 20 mg BID FLORINA Administration Levofloxacin 750 mg/ Device 150 mls @ 100 mls/hr 06/15/19 12:00 06/17/19 10: 58 IVPB 150 mls 1200 FLORINA Administration Piperacillin Sod/Tazobactam 100 mls @ 200 mls/hr 06/16/19 23:59 06/18/19 06: 06 Sod 3.375 gm/ Sodium Chloride IVPB 100 mls Q6HR FLORINA Administration Sodium Chloride 1,000 mls @ 75 mls/hr 06/16/19 21:45 06/18/19 08:07 Normal Saline 0.9% IV 1,000 mls .[id number] FLORINA Administration Lorazepam 0.5 mg 06/16/19 11:54 06/18/19 01:25 Ativan PO 0.5 mg Q4H PRN Administration Anxiety Methylprednisolone Sodium Succinate 40 mg 06/16/19 22:00 06/18/19 06:07 Solu-Medrol IVP 40 mg Q8HR FLORINA Administration Sodium Chloride 10 ml 06/16/19 21:00 06/18/19 08:19 Flush - Normal Saline IVF Not Given Q12HR FLORINA Trazodone HCl 50 mg 06/15/19 19:47 06/17/19 20:19 Desyrel PO 50 mg HS PRN Administration Insomnia - Exam Eye: PERRL ENT: normocephalic atraumatic, no oropharyngeal lesions Heart: RRR, no murmur, no gallops, no rubs, normal peripheral pulses Respiratory: no ronchi, rales Gastrointestinal: soft, non-tender, non-distended, normal bowel sounds, no palpable masses, no hepatomegaly Extremities: no cyanosis, 1+ LE edema Hosp A/P (1) Acute respiratory failure with hypoxemia Code(s): J96.01 - ACUTE RESPIRATORY FAILURE WITH HYPOXIA Status: Acute (2) Stage 4 lung cancer Code(s): C34.90 - MALIGNANT NEOPLASM OF UNSP PART OF UNSP BRONCHUS OR LUNG Status: Chronic (3) Leukocytosis Code(s): D72.829 - ELEVATED WHITE BLOOD CELL COUNT, UNSPECIFIED Status: Acute - Plan * Acute respiratory failure- Continue Levaquin and Zosyn * Bipap as needed * Prognosis is guarded * She has decided to continue active treatment for now. She will need to be stronger in order to undergo a biopsy- will therefore add PT/OT and encourage oral intake.
[2019-06-18 10:56] LABS: Hemoglobin 7.5 g/dL (12.0-16.0); Mean Corpuscular HGB CONC 30.8 g/dL (32.0-36.0); Mean Corpuscular Hemoglobin 35.2 pg (27.0-31.0); Mean Platelet Volume 6.7 fL (7.4-10.4); Platelet Count 403 thou/uL (130-400); RBC Distribution Width 17.1 % (11.5-14.5); Red Blood Cell (RBC) Count 2.14 mill/uL (4.20-5.40); White Blood Cell (WBC) Count 47.4 thou/uL (4.8-10.8)
[2019-06-18 11:28] LABS: Band 1 % (5-11); Lymphocytes 2 % (21-51); MDiff Complete? YES; Macrocytosis SLIGHT = 6-15 cells (100X) (0-5/hpf); Monocytes 4 % (0-10); Neutrophil 93 % (42-75); Platelet Morphology Comment Appears Increased
--- NOTE | 2019-06-18 13:32 | PRG ---
DATE OF SERVICE: 06/18/2019 SUBJECTIVE: Maryann Lemos is off BiPAP. She does not want it back on anymore. OBJECTIVE: VITAL SIGNS: Respiratory rates in the high 20s to low 30s. Blood pressure 118/65, heart rate 114, and respiratory rates in the teens. LUNGS: Remarkable for prolonged expiratory phase. Diffuse wheezes. HEART: Regular rhythm. ABDOMEN: Soft. EXTREMITIES: Without asymmetry. She has trace pedal edema. LABORATORY DATA: White count is up to 47.4, hemoglobin 7.5, and platelets 403,000. There are no electrolytes from today. IMPRESSION: 1. 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 3. New abdominal masses. 4. Extreme deconditioning. She has informed me today that she is tired of all this. We will discontinue the BiPAP. We will focus on keeping her comfortable. I do not personally believe that she will get strong enough to have any type of workup for these abdominal masses. We will continue the nebulizer treatments or antimicrobial therapy and her steroids for now. Job ID: [id number]
[2019-06-18] MEDS: traZODone HCl 50 MG TAB PO PRN (21:16)
[2019-06-18] MEDS: Bacteriostatic Water 30 ML VIAL FS PRN (21:16)
[2019-06-19] MEDS: methylPREDNISolone Sod Succ 40 MG VIAL IVP SCH ×2 (05:23→13:20)
[2019-06-19] MEDS: Piperacillin/Tazobactam 3.375 GM in Sodium Chloride 0.9% 100 ML IVPB SCH ×3 (05:23→16:18)
[2019-06-19] MEDS: Bacteriostatic Water 30 ML VIAL FS PRN (05:23)
--- NOTE | 2019-06-19 08:28 | PRG ---
DATE OF SERVICE: 06/19/2019 SUBJECTIVE: Ms. Lemos still says she is tired. She does not look as fatigued as she did 2 days ago, but still has a long expiratory phase. OBJECTIVE: VITAL SIGNS: Heart rate is 108, respiratory rate is in the 20s, oximetry is 99% on 4 L cannula, blood pressure is 124/77. LUNGS: She has faint wheezes bilaterally. HEART: Regular rhythm. ABDOMEN: Soft. EXTREMITIES: Without edema. LABORATORY DATA: A CBC was not ordered today. Yesterday's white count was 47.4. We will have her get a CBC now. PLAN: She is stable to move out of the Critical Care Unit since noninvasive ventilation, intubation, or CPR not planned in the future. She does remain tenuous from a strength standpoint. It is unclear at this point whether she will get strong enough to have one of these abdominal masses biopsied, but I doubt she will. She will continue with steroids and nebulizer treatments as well as comfort measures. Palliative Care is also following and their input is appreciated. The etiology of her white count is not entirely clear. It is unclear whether or not this is a leukemoid reaction or actually related to pneumonia. She remains on Zosyn and Levaquin. Her antimicrobial therapy could be simplified over the weekend possibly. I would keep her on IV steroids and frequent nebulizer treatments. Job ID: [id number]
[2019-06-19 09:33] LABS: Band 15 % (5-11); Hemoglobin 7.6 g/dL (12.0-16.0); Hypochromia SLIGHT = 6-15 cells (100X) (0-5/hpf); MDiff Complete? YES; Macrocytosis MODERATE=16-30 cells (100X) (0-5/hpf); Mean Corpuscular HGB CONC 29.4 g/dL (32.0-36.0); Mean Corpuscular Hemoglobin 34.4 pg (27.0-31.0); Mean Platelet Volume 6.4 fL (7.4-10.4); Neutrophil 85 % (42-75); Platelet Count 391 thou/uL (130-400); Platelet Morphology Comment Appears Adequate; RBC Distribution Width 17.1 % (11.5-14.5); Red Blood Cell (RBC) Count 2.22 mill/uL (4.20-5.40); Toxic Granulation MODERATE; White Blood Cell (WBC) Count 47.1 thou/uL (4.8-10.8)
[2019-06-19] MEDS: Enoxaparin Sodium 40 MG/0.4 ML SYRINGE SC SCH (11:05)
[2019-06-19] MEDS: Famotidine 20 MG TAB PO SCH (11:06)
[2019-06-19 13:10] VITALS: BP 139/83; TEMP 97.6
[2019-06-19 13:31] VITALS: BMI 25.8
--- NOTE | 2019-06-19 14:11 | PDOC.HOSPP ---
- Subjective Encounter Date: 06/19/19 Encounter Time: 14:08 Subjective: Ms. Lemos was seen today in follow-up of respiratory failure. She does not have any new complaints. - Objective Vital Signs & Weight: Vital Signs (12 hours) Temp Pulse Resp BP Pulse Ox 06/19/19 12:09 97.6 F 96 22 H 139/83 93 L 06/19/19 10:57 107 H 20 99 06/19/19 08:15 97.5 F L 93 20 139/70 94 L 06/19/19 08:00 92 L 06/19/19 07:29 108 H 22 H 99 06/19/19 07:00 97.6 F 06/19/19 04:00 98.4 F Weight Admit Weight 144 lb 9.972 oz Weight 145 lb 11.609 oz Most Recent Monitor Data Heart Rate from ECG 105 NIBP 142/86 NIBP BP-Mean 104 Respiration from ECG 18 SpO2 100 I&O: 06/18/19 06/19/19 06/20/19 06:59 06:59 06:59 Intake Total 2117 2158 Output Total 830 715 30 Balance 1287 1443 -30 Result Diagrams: 06/19/19 08:31 06/17/19 08:07 Hospitalist ROS - Medication Medications: Active Medications Generic Name Dose Route Start Last Admin Trade Name Freq PRN Reason Stop Dose Admin Acetaminophen 650 mg 06/14/19 14:01 06/18/19 01:25 Tylenol PO 650 mg Q4H PRN Administration Headache/Fever/Mild Pain (1-3) Albuterol/Ipratropium 3 ml 06/16/19 22:30 06/19/19 10:57 Duoneb NEB 3 ml [id number] FLORINA Administration Bisacodyl 10 mg 06/14/19 14:01 06/15/19 08:47 Dulcolax PO 10 mg DAILYPRN PRN Administration Constipation Enoxaparin Sodium 40 mg 06/15/19 09:00 06/19/19 11:05 Lovenox SC Not Given 0900 FLORINA Famotidine 20 mg 06/14/19 21:00 06/19/19 11:06 Pepcid PO Not Given BID FLORINA Levofloxacin 750 mg/ Device 150 mls @ 100 mls/hr 06/15/19 12:00 06/19/19 12: 02 IVPB Not Given 1200 FLORINA Piperacillin Sod/Tazobactam 100 mls @ 200 mls/hr 06/16/19 23:59 06/19/19 12: 02 Sod 3.375 gm/ Sodium Chloride IVPB Not Given Q6HR FLORINA Sodium Chloride 1,000 mls @ 75 mls/hr 06/16/19 21:45 06/18/19 23:38 Normal Saline 0.9% IV 1,000 mls .[id number] FLORINA Administration Lorazepam 0.5 mg 06/16/19 11:54 06/18/19 21:16 Ativan PO 0.5 mg Q4H PRN Administration Anxiety Methylprednisolone Sodium Succinate 40 mg 06/16/19 22:00 06/19/19 13:20 Solu-Medrol IVP Not Given Q8HR FLORINA Sodium Chloride 10 ml 06/16/19 21:00 06/19/19 11:06 Flush - Normal Saline IVF Not Given Q12HR FLORINA Sterile Water 1 ml 06/16/19 19:20 06/19/19 05:23 Bacteriostatic Water FS 1 ml PRN PRN Administration RECONSTITUTION Trazodone HCl 50 mg 06/15/19 19:47 06/18/19 21:16 Desyrel PO 50 mg HS PRN Administration Insomnia - Exam Eye: PERRL Heart: RRR, no murmur, no gallops, no rubs, normal peripheral pulses Respiratory: no ronchi, rales Gastrointestinal: soft, non-tender, non-distended, normal bowel sounds, no palpable masses, no hepatomegaly Extremities: 1+ LE edema Hosp A/P (1) Acute respiratory failure with hypoxemia Code(s): J96.01 - ACUTE RESPIRATORY FAILURE WITH HYPOXIA Status: Acute (2) Stage 4 lung cancer Code(s): C34.90 - MALIGNANT NEOPLASM OF UNSP PART OF UNSP BRONCHUS OR LUNG Status: Chronic (3) Leukocytosis Code(s): D72.829 - ELEVATED WHITE BLOOD CELL COUNT, UNSPECIFIED Status: Acute - Plan * Acute respiratory failure- due to advancing Stage 4 lung caner, and probable pneumonia * She has made the decision to stop aggressive treatment and focus more on symptom control * She has met with [facility] , and has decided on leaving the hospital on their services
[2019-06-19] MEDS ORDERED: HYDROcodone/Acetaminophen 5/325 mg Tablet PO PRN (15:42)
[2019-06-19] MEDS ORDERED: HYDROcodone/Acetaminophen 10/325 mg Tablet PO PRN (15:42)
[2019-06-19] MEDS ORDERED: Morphine 2 MG/ML SYRINGE SLOW IVP PRN (15:43)
[2019-06-19] MEDS: Sodium Chloride 0.9% 1,000 ML IV SCH (16:18)
--- NOTE | 2019-06-20 01:34 | DIS ---
DATE OF ADMISSION: 06/14/2019 DATE OF DISCHARGE: 06/19/2019 DISCHARGE DISPOSITION: Home. DISCHARGE DIAGNOSES: 1. Acute on chronic respiratory failure. 2. Advanced stage IV lung cancer. 3. Multiple intraabdominal mass. 4. Leukemoid reaction. 5. Hypothyroidism. 6. Hypovitaminosis D. DISCHARGE MEDICATIONS: 1. Levothyroxine 125 mcg p.o. daily. 2. Lasix 20 mg daily. 3. Fluconazole 150 mg p.o. daily. 4. Vitamin D 3000 units p.o. daily. 5. Aspirin 81 mg a day. PROCEDURES DONE DURING ADMISSION: The patient had a CT angiogram of the chest showing an increased right upper lobe mass with adjacent 4th rib fracture. There was a new infiltrative mass along the left pericolic gutter near the splenic flexure. No evidence of PE. There were multiple old fractures. There was moderate sliding hiatal hernia. Then, there was a new upper lobe pulmonary nodule measuring 11 mm. The patient also had a CT scan of the abdomen and pelvis. The findings were of a complex mass involving the most proximal small bowel representing a lymphoma or malignancy. There was some metastatic disease in the left upper quadrant of the abdomen. Multiple right abdominal masses, likely representing metastatic disease. 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 CODE STATUS: DNAR. ALLERGIES: SULFA. HOSPITAL COURSE: Ms. Lemos is a pleasant 78-year-old female who was admitted to the hospital after having worsening shortness of breath. She was also found to have leukocytosis and cough off and on. She was admitted with a presumed diagnosis of pneumonia. She was treated with broad-spectrum IV antibiotics. Her office rep was consulted. During the course of her hospital stay, she actually deteriorated with regard to her respiratory status requiring a stay in the ICU for a couple of days on BiPAP. Her respiratory status was stabilized, however, she was becoming more and more deconditioned. After the CT scan of the abdomen demonstrated multiple new abdominal mass like lesions, the patient made the decision to stop aggressive care and be transitioned to inpatient hospice and this was done on 06/19/2019, and she is being discharged to inpatient hospice, [facility]. Job ID: [id number]
== END 2019-06-19 17:30 | disposition hospice, inpatient (51) | DRG 177 ==
LOC: ERS 08:54 → T4-B 12:10 → CCU 06-16 12:54 → ONC 06-19 08:20
PROVIDERS: ADMIT Internal Medicine; ATTEND Internal Medicine
PROC: 5A09457 Assistance with Respiratory Ventilation, 24-96 Consecutive Hours, Continuous Positive Airway Pressure (ICD-10-PCS; principal; 2019-06-16)
DX: J69.0 Pneumonitis due to inhalation of food and vomit (principal); J96.21 Acute and chronic respiratory failure with hypoxia; C34.90 Malignant neoplasm of unspecified part of unspecified bronchus or lung; R19.09 Other intra-abdominal and pelvic swelling, mass and lump; Z51.5 Encounter for palliative care; Z66 Do not resuscitate; D72.823 Leukemoid reaction; K44.9 Diaphragmatic hernia without obstruction or gangrene; E03.9 Hypothyroidism, unspecified; J43.9 Emphysema, unspecified; M81.0 Age-related osteoporosis without current pathological fracture; K21.9 Gastro-esophageal reflux disease without esophagitis; I10 Essential (primary) hypertension; Z88.2 Allergy status to sulfonamides; Z90.710 Acquired absence of both cervix and uterus; Z87.891 Personal history of nicotine dependence
CPT/HCPCS: 36415; 71045; 71275; 74177; 80048; 80053; 80202; 81003; 81015; 82248; 82805; 83605; 83615; 83880; 84100; 84436; 84443; 84550; 85007; 85025; 85027; 85060; 87040; 87086; 93005; 94640; 94660; 96365; 96375; J1650; J1956; J2270; J2543; J2920; J2930; J3370; J3490; J7620; Q9966